=== PATIENT | female | born 1965 | race Two or more races ===

== ENCOUNTER → 2021-03-22 09:05 | Outpatient (REF) | payer BC, SELFPAY ==
--- NOTE | 2021-03-22 09:08 | CA_ITS ---
Transthoracic Echocardiogram Patient (Last, First, Middle): Tasia Vigil H Gender: Female Date of : 1965 Age: 56 Procedure Date: 03/22/2021 Procedure Type: Transthoracic Echocardiogram Location: OP Height: 162.56 cm Weight: 98.88 kg BSA: 2.03 m2 Heart Rate: bpm BP: 150 / 81 mmHg Cottage Master: NAT Referring MD: Justin Becker [facility] Symptoms: R01.1 - Cardiac murmur, unspecified Study Quality: Fair ECG Rhythm: Sinus Conclusions: - The left ventricular systolic function is normal. The visually estimated ejection fraction is between 60-65%. - There is mild calcification of the aortic valve. - There is mild mitral annular calcification. Findings Left Ventricle Normal left ventricular cavity size. There is normal left ventricular wall thickness. The left ventricular systolic function is normal. The visually estimated ejection fraction is between 60-65%. The calculated ejection fraction is 64% by biplane method. There is no evidence of regional wall motion abnormalities. Diastolic function is indeterminate on the basis of available data. Right Ventricle Normal right ventricular cavity size and systolic function. Atria Both atria are normal in size. Aortic Valve There is mild calcification of the aortic valve. There is no aortic valve stenosis. There is no aortic valve regurgitation. Mitral Valve There is mild mitral annular calcification. There is trace mitral valve regurgitation. There is no mitral valve stenosis. Pulmonic Valve The pulmonic valve was not well visualized. Tricuspid Valve Likely normal tricuspid valve structure and function. There is trace tricuspid valve regurgitation. The pulmonary artery systolic pressure is normal. Great Vessels The aortic annulus, sinuses of valsalva, and asc aorta are normal in size. Venous The inferior vena cava is normal in size and collapses greater than 50% with inspiration. Pericardium/Pleural There is no evidence of pericardial effusion. Prior Study Comparison No prior study available for comparison. Measurements M-Mode Liner Measurements Normals - Women/Men AOV Cusps: 1.90 1.5-2.6 cm/m2 2D Linear Measurements IVSd: 0.80 0.6-0.9/0.6-1.0 cm LVIDd: 4.62 3.9-5.3/4.2-5.9 cm LVIDd Index: 2.28 2.4-3.2/2.2-3.1 cm/m2 LVIDs: 2.38 2.0-3.6 cm LVPWd: 0.91 0.7-1.1 cm Ao Root: 2.80 2.1-3.5 cm LA Diam: 3.80 2.7-3.8/3.0-4.0 cm LAIDs Index: 1.87 1.5-2.3 cm/m2 LV Mass: 161.98 67-162/88-224 g LV Mass Index: 79.79 43-95/49-115 g/m2 LVOT Diam: 2.40 3.0+(-)1.3 cm 2D Systolic Function EF 4C: 59.50 >55% EF 2C: 66.90 >55% EF BiP: 63.60 >55% Mitral Valve MV Pk E: 1.77 MV PK A: 1.39 MV Decel Time: 128.00 E/A: 1.30 E'Lateral: 10.10 E'Medial: 6.85 E/E' Med: 25.80 E/E' Lat: 17.50 PHT: 38.00 MVA PHT: 5.79 Decel [place]: 13.82 Aortic Valve AoV Pk Henry: 1.46 AoV Mn Henry: 1.02 AoV VTI: 0.30 AoV Pk Grad: 9.00 Aov Mn Grad: 5.00 DONNA Cont.VTI: 3.71 LVOT LVOT Pk Henry: 0.96 LVOT Mn Henry: 0.72 LVOT VTI: 0.25 LVOT Pk Grad: 4.00 LVOT Mn Grad: 2.00 LVOT Diam: 2.40 LVOT Area: 4.52 Diastolic Function MV Pk E: 1.77 MV Pk A: 1.39 E/A: 1.30 E'Medial: 6.85 E/E' Med: 25.80 E' Laterial: 10.10 E/E' Lat: 17.50 Tricuspid Valve TR Pk Henry: 2.73 TR Pk Grad: 30.00 RA Press: 3.00 RVSP: 33.00 Great Vessels Aorta Ao Root-2D: 2.80 2.0-3.7 cm Ao Asc: 3.40 2.1-3.4 cm Ao Arch: 2.90 Pulmonary Valve PV Pk Henry: 1.13 Peak PV Grad: 5.00 Updated in Other Vendor System with Status of Final Amador Grossman MD electronically signed on 03/23/2021 3:15:53 PM with status of Final
== END ==
LOC: HO.CARD 09:05
PROVIDERS: Visit Provider Nurse Practitioner Family
DX: R01.1 Cardiac murmur, unspecified (principal)
CPT/HCPCS: 93306

== ENCOUNTER 2021-05-22 11:05 | Outpatient (REF) | payer BC, SELFPAY ==
--- NOTE | ~2021-05-22 | MM_ITS ---
EXAMINATION: MM SCREENING DIGITAL BREAST TOMOSYNTHESIS, BILATERAL CLINICAL INFORMATION: Screening. Asymptomatic. The lifetime risk of breast cancer based on the Tyrer-Cuzick Model is 7%. COMPARISON: Mammography: 05/16/2020, 04/27/2019, 11/25/2017 TECHNIQUE: Digital breast tomosynthesis is performed in both the craniocaudal and mediolateral oblique views along with computer-aided detection (CAD). Synthesized 2D images are generated from the tomosynthesis. Additional left MLO view is provided. FINDINGS: There are scattered areas of fibroglandular density (ACR BI-RADS breast composition Category b). There are no significant masses, abnormal calcifications, or other abnormalities. The axilla and skin contours are unremarkable. No significant changes. MM/MM tomosynthesis screening BI IMPRESSION: No mammographic evidence of malignancy. ASSESSMENT: BI-RADS 1: Negative RECOMMENDATION: Routine annual mammography screening. This patient's information was entered into a reminder system with a target due date for their next mammogram.
== END 2021-05-22 11:06 | disposition home or self-care (01) ==
LOC: HO.MAMMO 11:05
PROVIDERS: Visit Provider Nurse Practitioner Family
DX: Z12.31 Encounter for screening mammogram for malignant neoplasm of breast (principal)
CPT/HCPCS: 77063; 77067

== ENCOUNTER 2021-10-09 06:54 | Outpatient (REF) | payer BC, SELFPAY ==
[2021-10-09 11:33] LABS: Basophils Percent Auto 0.8 % (0-2); Eosinophils Absolute Auto 0.3 X10*3/uL (0.0-0.4); Eosinophils Percent Auto 6.3 % (0-4); Hemoglobin 12.5 g/dl (12.0-16.0); Imm Gran Abs Auto 0.01 X10*3/uL (0.00-0.03); Imm Gran Pct Auto 0.2 % (0.0-0.4); Lymphocytes Absolute Auto 1.5 X10*3/uL (1.2-4.9); Lymphocytes Percent Auto 32.3 % (20-40); MANUAL DIFF FLAG NO; Mean Corpuscular HGB Conc 30.5 g/dl (31.0-35.0); Mean Corpuscular Hemoglobin 25.8 pg (27.0-33.0); Mean Corpuscular Volume 84.7 fL (80.0-98.0); Mean Platelet Volume 10.4 fL (9.4-12.3); Monocytes Absolute Auto 0.5 X10*3/uL (0.1-1.2); Monocytes Percent Auto 9.9 % (2-11); Neutrophils Absolute Auto 2.4 x10*3/uL (2.0-8.3); Neutrophils Percent Auto 50.5 % (45-73); Platelet Count 305 X10*3/uL (160-400); Red Blood Count 4.84 X10*6/uL (4.20-5.50); Red Cell Distribution Width 16.1 % (11.0-16.0); White Blood Count 4.7 X10*3/uL (4.8-10.8)
[2021-10-09 11:44] LABS: INTERNATIONAL NORM RATIO 0.9 (0.9-1.1); Prothrombin Time 9.9 SEC (9.9-13.0)
[2021-10-09 12:11] LABS: Alanine Aminotransferase 30 U/L (0-31); Albumin Level 4.5 g/dL (3.5-5.0); Alkaline Phosphatase 53 U/L (39-117); Anion Gap 15 (12-20); Aspartate Amino Transferase 16 U/L (5-31); Bilirubin Total 0.4 mg/dL (0.0-1.0); Blood Urea Nitrogen 17 mg/dL (9-16); Calcium 10.1 mg/dL (8.4-10.2); Carbon Dioxide 31 mmol/L (22-29); Chloride 96 mmol/L (96-108); Estimated Glomerular Filt Rate > 60; Glucose Fasting 232 mg/dL (60-99); Potassium 3.7 mmol/L (3.3-5.1); Sodium 138 mmol/L (135-145); Total Protein 7.7 g/dL (6.5-8.0)
[2021-10-09 13:08] LABS: Partial Thromboplastin Time 32.1 SEC (24.1-38.0)
== END 2021-10-09 06:55 | disposition home or self-care (01) ==
LOC: HO.HMGCLDS 06:54
PROVIDERS: PCP Nurse Practitioner Family; Visit Provider Nurse Practitioner Family
DX: Z01.818 Encounter for other preprocedural examination (principal)
CPT/HCPCS: 36415; 80053; 85025; 85610; 85730

== ENCOUNTER 2022-01-14 06:09 | Day surgery (SDC) | payer BC, SELFPAY ==
--- NOTE | 2022-01-10 11:31 | MHC.SHP ---
Pre-Procedural Eval Section A Date of Service: 01/10/22 The patient is an INPATIENT: No Changes since office visit: No Cold of Flu in the past 2 weeks, No New Medical Problems, No Changes in Medication and No Patient answered all questions The History & Physical has been completed within 30 days and I have reviewed it.: Yes Section B Chief Complaint: cataract Allergies: Allergies Allergy/AdvReac Type Severity Reaction Status Date / Time No Known Allergies Allergy Verified 01/09/22 15:31 Plan Diagnosis/Plan: Unchanged I have reviewed the history and physical and performed a pertinent physical examination on my patient. No changes have occurred unless specified.
--- NOTE | 2022-01-10 15:03 | P.CONAN_ITS ---
Documented by User: Prudence Lara NP 01/10/22 15:04 HPI - Anesthesia Eval Consult details Narrative: 56yo F for Right Cataract Extraction IOL Insertion PCP cleared No prev cataract on record [facility] Active Problems Active Problems: All Active Problems (Updated 01/09/22 @ 14:45 by Justin Becker [facility]) Pre-op evaluation (Acute) Screening for colon cancer (Acute) Systolic murmur (Acute) Physical exam (Acute) Pre-op evaluation (Acute) Lipid disorder (Acute) Rheumatoid arthritis (Acute) Hypertension, essential (Acute) Diabetes mellitus (Acute) Past Medical History Medical History (Updated 01/09/22 @ 14:45 by Justin Becker [facility]) Diabetes mellitus Hypertension, essential Lipid disorder On beta bill at home Rheumatoid arthritis Family History Family History Father Heart disease Myocardial infarction Mother History of CVA (cerebrovascular accident) Brother No problems noted. Sister No problems noted. Daughter No problems noted. Daughter No problems noted. Surgical History Surgical History History of back surgery Hx of cholecystectomy Social History Social History Housing: House Alcohol intake: current Alcohol intake frequency: holidays/special occasions only Patient Tobacco Use Status: Former Tobacco user Quit Date: 2009 Years Smoked: quit 12 years ago e-Cigarette/Vaping Use: Never Used Second Hand Smoke Exposure: No Use of substances other than those prescribed or required for medical reasons: No Are you DNR?: No Advance Directives: No Advance Directives Information Provided: Yes Advance Directives on File: No Current occupational status: employed Current occupation: [employer] Current occupational exposures/hazards: No Cognitive needs: No Hearing needs: No Vision needs: No Meds Allergies Allergy/AdvReac Type Severity Reaction Status Date / Time No Known Allergies Allergy Verified 01/09/22 15:31 Home Medications Medication Instructions Recorded Confirmed Last Taken Type etanercept 50 mg/mL (1 mL) mg SUBCUT QWEEK 08/04/20 01/09/22 Unknown History subcutaneous pen injector folic acid 1 mg tablet 1 mg PO DAILY 02/28/21 01/09/22 Unknown History methotrexate (PF) 15 mg/0.4 mL 15 mg SUBCUT QWEEK 10/09/21 01/09/22 Unknown History subcutaneous auto-injector Exam Exam Date and Time: January 10, 2022 1503 Assessment and Plan Assessment Anesthesia Assessment: Chart Reviewed Documented by User: Gonzalez Maddox MD 01/14/22 07:03 [facility] Past Medical History Medical History (Updated 01/09/22 @ 14:45 by ELIZABETH Isaac) Diabetes mellitus Hypertension, essential Lipid disorder On beta bill at home Rheumatoid arthritis Family History Family History Father Heart disease Myocardial infarction Mother History of CVA (cerebrovascular accident) Brother No problems noted. Sister No problems noted. Daughter No problems noted. Daughter No problems noted. Family history of problems with anesthesia: No Surgical History Surgical History History of back surgery Hx of cholecystectomy History of Problems with Anesthesia: No Social History Social History Housing: House Alcohol intake: current Alcohol intake frequency: holidays/special occasions only Patient Tobacco Use Status: Former Tobacco user Quit Date: 2009 Years Smoked: quit 12 years ago e-Cigarette/Vaping Use: Never Used Second Hand Smoke Exposure: No Use of substances other than those prescribed or required for medical reasons: No Are you DNR?: No Advance Directives: No Advance Directives Information Provided: Yes Advance Directives on File: No Current occupational status: employed Current occupation: [employer] Current occupational exposures/hazards: No Cognitive needs: No Hearing needs: No Vision needs: No Meds Allergies Allergy/AdvReac Type Severity Reaction Status Date / Time No Known Allergies Allergy Verified 01/09/22 15:31 Home Medications Medication Instructions Recorded Confirmed Last Taken Type etanercept 50 mg/mL (1 mL) mg SUBCUT QWEEK 08/04/20 01/09/22 Unknown History subcutaneous pen injector folic acid 1 mg tablet 1 mg PO DAILY 02/28/21 01/09/22 Unknown History methotrexate (PF) 15 mg/0.4 mL 15 mg SUBCUT QWEEK 10/09/21 01/09/22 Unknown History subcutaneous auto-injector Exam Airway Mallampati Class: II TM Dist: >3cm Neck ROM: Full Loose/Missing/Broken Teeth: No Heart: [id number] Lungs: cta b/l Assessment and Plan Assessment Anesthesia Assessment: Anesthesia Plan Discussed Final Anesthetic Review Family History of Problems with Anesthesia: No History of Problems with Anesthesia: No NPO: Yes ASA Class: III Final Preanesthetic Review: No Changes in Pt Med Stat, Meds/Allgs Chart Reviewed, Consent Obtained/Reviewed and Anes Risks/Benef Reviewed Patient Risk: Intermediate Procedure Risk: Low Assessment/Block/Sedation in SS: Assess/Block/Sedation-SS Anesthetic Plan Anesthetic Plan: MAC: and Agree w/ Assess. and Plan Disposition: Standard PACU
[2022-01-14 06:17] VITALS: BP 150/91; PULSE 93; RESP 16; TEMP 36.2; O2SAT 97; BMI 35.9
[2022-01-14 06:30] LABS: Glucose, Whole Blood 205 mg/dL (60-115)
[2022-01-14] MEDS: Tetracaine HCl/PF 0.5% Oph Sol 4 ML DROPS 1 DROP EYE-RIGHT (06:32)
[2022-01-14] MEDS: Lactated Ringers 500 ML 50 ML IV (06:32)
[2022-01-14] MEDS: Tropicamide 1 % Ophth Sol 3 ML BTL 1 DROP EYE-RIGHT ×3 (06:34→06:42)
[2022-01-14] MEDS: Phenylephrine HCL 2.5% Oph SoL 2 ML BOTTLE 1 DROP EYE-RIGHT ×3 (06:38→06:44)
--- NOTE | 2022-01-14 07:52 | HO.PNOPHT ---
Ophthalmology Procedure Procedure Date of Service: 01/14/22 Ophthalmology Viscoelastic: Nevaeh Maet Dual Pack Pro Ophthalmology Lenses: TECDOMINIC [id number] (20) Procedure Notes: PREOPERATIVE DIAGNOSIS: Decreased visual acuity right eye secondary to cataract POSTOPERATIVE DIAGNOSIS: Same PROCEDURE: Right cataract extraction with intraocular lens insertion SURGEON: Skinny Winters M.D. ANESTHESIA: Topical/MAC ESTIMATED BLOOD LOSS: None COMPLICATIONS: None After obtaining informed consent, the patient was brought to the operating room suite and placed in the supine position. After adequate sedation per anesthesia, topical drops of Tetracaine were given to the right eye. The eye was then prepped and draped in the usual sterile fashion. The operating room microscope was then positioned over the operative eye and a lid speculum placed. A paracentesis was created. Viscoelastic was then instilled into the anterior chamber. A three plane incision was then created temporally, utilizing a 2.85 mm keratome. Capsulotomy forceps were then utilized to create a circular tear capsulotomy. Hydrodissection and hydrodelineation were carried out until adequate mobilization of the nucleus occurred. Phacoemulsification was then utilized to remove the dense central nucleus followed by removal of the cortical material utilizing the automated aspiration irrigation unit. Viscoelastic was instilled into the posterior capsular bag followed by placement of a posterior chamber intraocular lens without difficulty. The residual Viscoelastic was then removed utilizing the automated IA machine. The wound was checked and found to be watertight. The patient tolerated the procedure well and the lid speculum was removed. Intracameral injection of Vigamox 0.1 mL followed by a subtenon injection of Kenalog-40 0.2 mL were administered. The patient will be seen in the a.m.
[2022-01-14 07:58] VITALS: BP 128/76; PULSE 86; RESP 18; TEMP 36.1; O2SAT 94
== END 2022-01-14 08:01 | disposition home or self-care (01) ==
PROVIDERS: PCP Nurse Practitioner Family; Visit Provider Ophthalmology
PROC: (CPT 66985; principal; 2022-01-14 07:30)
DX: H25.11 Age-related nuclear cataract, right eye (principal); E11.9 Type 2 diabetes mellitus without complications; I10 Essential (primary) hypertension; M06.9 Rheumatoid arthritis, unspecified; Z79.84 Long term (current) use of oral hypoglycemic drugs; Z79.899 Other long term (current) drug therapy
CPT/HCPCS: 66984; 82947; J2250; J3010; J3300; V2632

== ENCOUNTER 2022-08-26 14:11 | Outpatient (REF) | payer BC, SELFPAY ==
[2022-08-26 15:04] LABS: Influenza A PCR NEGATIVE (Negative); Influenza B PCR NEGATIVE (Negative); Resp Syncy Virus RNA Qual PCR NEGATIVE (Negative); SARS COV2 PCR INHOUSE NEGATIVE (Negative)
== END 2022-08-26 14:12 | disposition home or self-care (01) ==
LOC: HO.LNP 14:11
PROVIDERS: Visit Provider Nurse Practitioner Family
DX: Z20.822 Contact with and (suspected) exposure to COVID-19 (principal); J02.9 Acute pharyngitis, unspecified
CPT/HCPCS: 0241U

== ENCOUNTER 2022-09-06 06:11 | Outpatient (REF) | payer BC, SELFPAY ==
[2022-09-06 12:55] LABS: Alanine Aminotransferase 26 U/L (0-31); Albumin Level 4.1 g/dL (3.5-5.0); Alkaline Phosphatase 53 U/L (39-117); Anion Gap 17 (12-20); Aspartate Amino Transferase 19 U/L (5-31); Bilirubin Total 0.5 mg/dL (0.0-1.0); Blood Urea Nitrogen 7 mg/dL (9-16); Calcium 9.6 mg/dL (8.4-10.2); Carbon Dioxide 34 mmol/L (22-29); Chloride 89 mmol/L (96-108); Cholesterol 154 mg/dL; Estimated Glomerular Filt Rate > 60; Glucose Fasting 161 mg/dL (60-99); HDL Cholesterol 47 mg/dL; LDL Cholesterol Calculated 62 mg/dl; Potassium 3.2 mmol/L (3.3-5.1); TSH reflex Free T4 1.54 uIU/mL (0.32-4.0); Triglycerides 229 mg/dL
[2022-09-06 12:59] LABS: Sodium 137 mmol/L (135-145)
[2022-09-06 13:16] LABS: Appearance Urine Clear; Color Urine Yellow; Glucose Urine UA >=1000 mg/dL (Negative); Leukocyte Esterase Urine Negative (Negative); Nitrite Urine Negative (Negative); PH 6.5 (5.0-9.0); UMIC TRIGGER UACC YES; Urine Blood Negative (Negative); Urine Ketones 15 mg/dL (Negative); Urine Protein Negative (Neg-Trace)
[2022-09-06 13:22] LABS: Bacteria Urine None Seen (None Seen); Hyaline Casts Urine 0-2 /LPF (0-2); RBC Urine 0-2 /HPF (0-2); Squamous Epithelial Cell Urine 0-2 /HPF (0-2); WBC Urine 0-5 /HPF (0-5)
[2022-09-06 13:37] LABS: Estimated Average Glucose 192 mg/dL; Hemoglobin A1c % 8.3 %
[2022-09-06 14:07] LABS: Creatinine Urine 16.91 mg/dL; Microalbumin Urine < 5.0 mg/L
== END 2022-09-06 06:12 | disposition home or self-care (01) ==
LOC: HO.HMGCLDS 06:11
PROVIDERS: PCP Nurse Practitioner Family; Visit Provider Nurse Practitioner Family
DX: E11.9 Type 2 diabetes mellitus without complications (principal)
CPT/HCPCS: 36415; 80053; 80061; 81001; 82043; 83036; 84443

== ENCOUNTER 2022-09-16 15:48 | Outpatient (REF) | payer BC, SELFPAY ==
--- NOTE | ~2022-09-16 | MM_ITS ---
EXAMINATION: MM SCREENING DIGITAL BREAST TOMOSYNTHESIS, BILATERAL CLINICAL INFORMATION: Screening. Asymptomatic. The lifetime risk of breast cancer based on the Tyrer-Cuzick Model is 5%. COMPARISON: Mammography: 05/22/2021, 05/16/2020, 04/27/2019 TECHNIQUE: Digital breast tomosynthesis is performed in both the craniocaudal and mediolateral oblique views along with computer-aided detection (CAD). Synthesized 2D images are generated from the tomosynthesis. Additional right MLO view is provided. FINDINGS: There are scattered areas of fibroglandular density (ACR BI-RADS breast composition Category b). There are no significant masses, abnormal calcifications, or other abnormalities. Parenchymal pattern is similar to prior studies. No developing density or architectural abnormality. There is a dermal lesion marked with skin marker right axilla. Axillary nodes are unremarkable. Skin contours are otherwise smooth. MM/MM tomosynthesis screening BI IMPRESSION: No mammographic evidence of malignancy. ASSESSMENT: BI-RADS 2: Benign RECOMMENDATION: Routine annual mammography screening. This patient's information was entered into a reminder system with a target due date for their next mammogram.
== END 2022-09-16 15:49 | disposition home or self-care (01) ==
LOC: HO.MAMMO 15:48
PROVIDERS: Visit Provider Nurse Practitioner Family
DX: Z12.31 Encounter for screening mammogram for malignant neoplasm of breast (principal)
CPT/HCPCS: 77063; 77067

== ENCOUNTER 2022-10-22 11:39 | Outpatient (REF) | payer BC, SELFPAY ==
[2022-10-22 14:08] LABS: Appearance Urine Clear; Color Urine Yellow; Glucose Urine UA >=1000 mg/dL (Negative); Leukocyte Esterase Urine Negative (Negative); Nitrite Urine Negative (Negative); UMIC TRIGGER UACC YES; Urine Blood Negative (Negative); Urine Ketones Negative (Negative); Urine Protein Negative (Neg-Trace)
[2022-10-22 14:16] LABS: Bacteria Urine None Seen (None Seen); Hyaline Casts Urine 0-2 /LPF (0-2); RBC Urine 0-2 /HPF (0-2); Squamous Epithelial Cell Urine 0-2 /HPF (0-2); WBC Urine 0-5 /HPF (0-5)
[2022-10-22 15:15] LABS: Anion Gap 19 (12-20); Carbon Dioxide 27 mmol/L (22-29); Chloride 91 mmol/L (96-108); Potassium 3.8 mmol/L (3.3-5.1); Sodium 133 mmol/L (135-145)
== END 2022-10-22 11:40 | disposition home or self-care (01) ==
LOC: HO.HMGCLDS 11:39
PROVIDERS: PCP Nurse Practitioner Family; Visit Provider Nurse Practitioner Family
DX: E87.6 Hypokalemia (principal)
CPT/HCPCS: 36415; 80051; 81001; 81003

== ENCOUNTER 2023-04-30 09:08 | Outpatient (REF) | payer BC, SELFPAY ==
[2023-04-30 11:10] LABS: MANUAL DIFF FLAG NO
[2023-04-30 11:16] LABS: Appearance Urine Cloudy; Color Urine Yellow; Glucose Urine UA >=1000 mg/dL (Negative); Leukocyte Esterase Urine Small (1+) (Negative); Nitrite Urine Negative (Negative); PH 5.5 (5.0-9.0); Specific Gravity - Urine 1.025 (1.005-1.025); UMIC TRIGGER UACC YES; Urine Blood Negative (Negative); Urine Ketones Negative (Negative); Urine Protein 30 (1+) mg/dL (Neg-Trace)
[2023-04-30 11:29] LABS: Bacteria Urine Trace (None Seen); RBC Urine 0-2 /HPF (0-2); Squamous Epithelial Cell Urine >20 /HPF (0-2); UACC Culture Trigger YES; WBC Urine 21-50 /HPF (0-5)
[2023-04-30 11:34] LABS: Basophils Percent Auto 1.1 % (0-2); Eosinophils Absolute Auto 0.3 X10*3/uL (0.0-0.4); Eosinophils Percent Auto 7.1 % (0-4); Hematocrit 37.7 % (37.0-47.0); Hemoglobin 11.1 g/dl (12.0-16.0); Lymphocytes Absolute Auto 1.4 X10*3/uL (1.2-4.9); Lymphocytes Percent Auto 40.5 % (20-40); Mean Corpuscular HGB Conc 29.4 g/dl (31.0-35.0); Mean Corpuscular Hemoglobin 23.3 pg (27.0-33.0); Mean Platelet Volume 10.5 fL (9.4-12.3); Monocytes Absolute Auto 0.4 X10*3/uL (0.1-1.2); Monocytes Percent Auto 10.5 % (2-11); Neutrophils Absolute Auto 1.4 x10*3/uL (2.0-8.3); Neutrophils Percent Auto 40.8 % (45-73); Platelet Count 339 X10*3/uL (160-400); Red Blood Count 4.77 X10*6/uL (4.20-5.50); Red Cell Distribution Width 16.7 % (11.0-16.0); White Blood Count 3.5 X10*3/uL (4.8-10.8)
[2023-04-30 11:42] LABS: Estimated Average Glucose 154 mg/dL
[2023-04-30 12:18] LABS: Alanine Aminotransferase 32 U/L (0-31); Albumin Level 4.2 g/dL (3.5-5.0); Alkaline Phosphatase 53 U/L (39-117); Anion Gap 14 (12-20); Aspartate Amino Transferase 21 U/L (5-31); Bilirubin Total 0.5 mg/dL (0.0-1.0); Blood Urea Nitrogen 13 mg/dL (9-16); Calcium 9.5 mg/dL (8.4-10.2); Carbon Dioxide 30 mmol/L (22-29); Chloride 97 mmol/L (96-108); Cholesterol 159 mg/dL; Estimated Glomerular Filt Rate > 60; Glucose Fasting 136 mg/dL (60-99); HDL Cholesterol 56 mg/dL; LDL Cholesterol Calculated 68 mg/dl; Potassium 3.1 mmol/L (3.3-5.1); Sodium 138 mmol/L (135-145); Total Protein 7.4 g/dL (6.5-8.0); Triglycerides 176 mg/dL
== END 2023-04-30 09:09 | disposition home or self-care (01) ==
LOC: HO.HMGCLDS 09:08
PROVIDERS: PCP Nurse Practitioner Family; Visit Provider Nurse Practitioner Family
DX: Z00.00 Encounter for general adult medical examination without abnormal findings (principal); E11.9 Type 2 diabetes mellitus without complications; R82.90 Unspecified abnormal findings in urine
CPT/HCPCS: 36415; 80053; 80061; 81001; 83036; 84443; 85025; 87086

== ENCOUNTER 2023-05-08 12:10 | Outpatient (REF) | payer BC, SELFPAY ==
[2023-05-08 13:46] LABS: Basophils Percent Auto 0.5 % (0-2); Eosinophils Absolute Auto 0.2 X10*3/uL (0.0-0.4); Eosinophils Percent Auto 4.4 % (0-4); Hematocrit 35.8 % (37.0-47.0); Hemoglobin 10.8 g/dl (12.0-16.0); Lymphocytes Absolute Auto 1.7 X10*3/uL (1.2-4.9); Lymphocytes Percent Auto 31.7 % (20-40); MANUAL DIFF FLAG NO; Mean Corpuscular HGB Conc 30.2 g/dl (31.0-35.0); Mean Corpuscular Hemoglobin 23.6 pg (27.0-33.0); Mean Corpuscular Volume 78.3 fL (80.0-98.0); Mean Platelet Volume 10.6 fL (9.4-12.3); Monocytes Absolute Auto 0.5 X10*3/uL (0.1-1.2); Monocytes Percent Auto 8.4 % (2-11); Platelet Count 298 X10*3/uL (160-400); Red Blood Count 4.57 X10*6/uL (4.20-5.50); Red Cell Distribution Width 16.6 % (11.0-16.0); Retic HGB Equivalent 25.5 pg (30.0-35.0); Reticulocyte Percent 1.9 % (0.5-1.8); Reticulocytes Absolute 0.085 X10*6/uL (0.026-0.095); White Blood Count 5.5 X10*3/uL (4.8-10.8)
[2023-05-08 14:47] LABS: Alanine Aminotransferase 30 U/L (0-31); Albumin Level 4.2 g/dL (3.5-5.0); Alkaline Phosphatase 50 U/L (39-117); Anion Gap 18 (12-20); Aspartate Amino Transferase 21 U/L (5-31); Bilirubin Total 0.4 mg/dL (0.0-1.0); Blood Urea Nitrogen 13 mg/dL (9-16); Calcium 9.7 mg/dL (8.4-10.2); Carbon Dioxide 26 mmol/L (22-29); Chloride 97 mmol/L (96-108); Estimated Glomerular Filt Rate > 60; Glucose Random 127 mg/dL (60-115); Iron 28 mcg/dL (30-160); Percent Iron Saturation 7 % (15-50); Potassium 3.4 mmol/L (3.3-5.1); Sodium 138 mmol/L (135-145); Total Iron Binding Capacity 409 mcg/dL (228-428); Total Protein 7.5 g/dL (6.5-8.0); Unsaturated Iron Binding 381 ug/dL
[2023-05-08 15:03] LABS: Ferritin 14 ng/mL (10-250)
[2023-05-08 16:54] LABS: Appearance Urine Clear; Color Urine Yellow; Glucose Urine UA >=1000 mg/dL (Negative); Leukocyte Esterase Urine Negative (Negative); Nitrite Urine Negative (Negative); PH 5.5 (5.0-9.0); UMIC TRIGGER UACC YES; Urine Blood Negative (Negative); Urine Ketones Trace mg/dL (Negative); Urine Protein Negative (Neg-Trace)
[2023-05-08 16:57] LABS: Bacteria Urine None Seen (None Seen); Hyaline Casts Urine 0-2 /LPF (0-2); RBC Urine 0-2 /HPF (0-2); Squamous Epithelial Cell Urine 0-2 /HPF (0-2); WBC Urine 0-5 /HPF (0-5)
== END 2023-05-08 12:11 | disposition home or self-care (01) ==
LOC: HO.HMGCLDS 12:10
PROVIDERS: PCP Nurse Practitioner Family; Visit Provider Nurse Practitioner Family
DX: D64.9 Anemia, unspecified (principal); E87.6 Hypokalemia
CPT/HCPCS: 36415; 80053; 81001; 82728; 83540; 85025; 85045

== ENCOUNTER 2023-05-09 | Outpatient (REF) | payer BC, SELFPAY ==
[2023-05-14 04:19] LABS: FIT1 NEGATIVE (NEGATIVE); FIT2 POSITIVE (NEGATIVE)
[2023-05-14 04:20] LABS: FIT Int Ctl YES
== END 2023-05-09 00:01 | disposition home or self-care (01) ==
LOC: HO.LNP
PROVIDERS: Visit Provider Nurse Practitioner Family
DX: D64.9 Anemia, unspecified (principal)
CPT/HCPCS: 82274

== ENCOUNTER 2023-05-13 14:19 | Outpatient (AMB) | payer BC, SELFPAY ==
[2023-05-13 14:29] VITALS: BP 138/76; PULSE 96; O2SAT 97; BMI 35.9
--- NOTE | 2023-05-13 14:29 | MHC.PC.OV ---
Vital Signs 05/13/23 14:29 Height 5 ft 4 in Weight 209 lb 2 oz BMI 35.9 BP 138/76 Blood Pressure Location Rt brachial Position Sitting Pulse 96 Pulse Source Pulse Oximeter Pulse Oximetry (%) 97 Oxygen Delivery Method Room Air Intake Visit Reasons: 3m follow up DM Allergies No Known Allergies Allergy (Verified 05/13/23 14:45) Medication List - Last Reconciled 05/13/23 by ELIZABETH Isaac albuterol sulfate 90 mcg/actuation 1 inh inhalation QID PRN diltiazem HCl 360 mg PO DAILY dulaglutide (Trulicity) 3 mg (0.5 mL) subcut QWEEK empagliflozin (Jardiance) 25 mg PO DAILY 90 days etanercept mg subcut QWEEK folic acid 1 mg PO DAILY hydrochlorothiazide 25 mg PO DAILY lisinopril 40 mg PO DAILY metformin 1,000 mg PO BID methotrexate (PF) 15 mg subcut QWEEK metoprolol succinate ER 100 mg PO DAILY OneTouch Ultra Test (blood sugar diagnostic) test blood sugar TID NS potassium chloride ER 10 mEq PO DAILY 30 days simvastatin 80 mg PO BEDTIME Tobacco use date assessed: 05/13/23 Dental Screening Dental Screen Date: 05/13/23 Did you have a dental visit in the last 12 months?: Yes Did you have a dental problem in the last 6 months where you did not have access to dental care?: No Was dental information given to patient?: Patient has dentist HPI 3m follow up DM HPI Details Pt is a diabetic, on an AURA and a statin. Last A1c was 7.0, microalbumin is up to date. Denies polyuria, polydipsia, and neuropathy. Pt denies any signs and symptoms of hypoglycemia and does know how to correct it. Anemia noted, recommended starting iron tabs. Denies any blood in stool. [facility] Medical History Diabetes mellitus Hypertension, essential Lipid disorder On beta bill at home Rheumatoid arthritis Surgical History History of back surgery Hx of cholecystectomy Family History Father Heart disease Myocardial infarction Mother History of CVA (cerebrovascular accident) Brother No problems noted. Sister No problems noted. Daughter No problems noted. Daughter No problems noted. Social History Housing: House Alcohol intake: current Alcohol intake frequency: holidays/special occasions only Patient Tobacco Use Status: Former Tobacco user Quit Date: 2010 Years Smoked: quit 12 years ago e-Cigarette/Vaping Use: Never Used Second Hand Smoke Exposure: No Current occupational status: employed Current occupation: [employer] Current occupational exposures/hazards: No Cognitive needs: No Hearing needs: No Vision needs: No Questionnaire Thrive Questionnaire Date Thrive assessed: 01/02/23 MIKE-7 AMB Questionnaire MIKE-7 Date MIKE - 7 assessed: 01/02/23 Source: Developed by Drs. Cecil Montez, Rubi Kenyon, Sha Sultana and colleagues, with an educational gladys from [employer]. Review of Systems Const Reports as per HPI Physical exam (Primary Care) Vital Signs: Last Vital Signs Pulse 96 05/13/23 14:29 BP 138/76 05/13/23 14:29 Pulse Ox 97 05/13/23 14:29 Oxygen Delivery Method Room Air 05/13/23 14:29 BMI result Body Mass Index 35.9 Tobacco/Smoking Status: Tobacco use Status Tobacco use date assessed 05/13/23 05/13/23 14:33 Patient Tobacco Use Status Former Tobacco user 05/13/23 14:33 e-Cigarette/Vaping Use Never Used 05/13/23 14:33 Thrive Assessment: Date of Thrive Assessment Date Thrive assessed 01/02/23 05/13/23 14:33 Const General: cooperative Nutritional Appearance: obese Orientation/consciousness: patient oriented x3 Resp Effort & Inspection: normal respiratory effort Auscultation: clear to auscultation bilaterally Cardio Rate: regular rate Rhythm: regular rhythm Heart sounds: S1 normal heart sound present, S2 normal heart sound present and Murmur heart sound present systolic Neuro General: patient oriented x3 Extrem Other: bilat feet: + sensation with use of monofilament, feet intact Psych Appearance: grossly normal Mental Status: mental status grossly normal Speech and movement: Normal speech and movement present Affect: normal affect Attitude: cooperative Thought process: Normal thought process present Thought content: Normal thought content present Insight: Good insight present (Psych) Judgement: Good judgement present (Psych) Assessment and Plan Assessment & Plan (1) Anemia: Code(s): D64.9 - Anemia, unspecified (2) Diabetes mellitus: Code(s): E11.9 - Type 2 diabetes mellitus without complications Plan The patient agreed to the use of a ophthalmic medical technician for this encounter. Scribed for ELIZABETH Gordillo by Mellisa Collins ophthalmic medical technician, on 05/13/2023 at 14:40 EST. Orders: Orders Ferritin Today D64.9 - Anemia, unspecified IRON PROFILE 3 Months D64.9 - Anemia, unspecified Complete Blood Count Auto Diff Today D64.9 - Anemia, unspecified Referrals Cologuard Test Z12.11 - Encounter for screening for malignant neoplasm of colon, Z12.12 - Encounter for screening for malignant neoplasm of rectum Medications: New OneTouch UltraSoft 2 Lancet (lancets) TID testing 100 ea 0RF NS E11.9 - Type 2 diabetes mellitus without complications OneTouch Ultra2 Meter (blood-glucose meter) TID testing 1 ea 0RF NS E11.9 - Type 2 diabetes mellitus without complications OneTouch Ultra2 Meter (blood-glucose meter) TID testing 1 ea 0RF NS E11.9 - Type 2 diabetes mellitus without complications Changed From dulaglutide (Trulicity) 3 mg (0.5 mL) subcut QWEEK 6 mL 0RF E11.9 - Type 2 diabetes mellitus without complications To dulaglutide 4.5 mg (0.5 mL) subcut QWEEK 2 mL 0RF E11.9 - Type 2 diabetes mellitus without complications Coding Level of Care Code Est Pt Level 3 (26686) Diagnoses Anemia D64.9 Diabetes mellitus E11.9
== END 2023-05-13 14:53 | disposition home or self-care (01) ==
PROVIDERS: PCP Nurse Practitioner Family; Visit Provider Nurse Practitioner Family
DX: D64.9 Anemia, unspecified (principal); E11.9 Type 2 diabetes mellitus without complications
CPT/HCPCS: 99213

== ENCOUNTER 2023-05-14 09:33 | Outpatient (REF) | payer BC, SELFPAY ==
[2023-05-21 04:14] LABS: HPV mRNA E6/E7 rflx Not Detected (Not Detected)
== END 2023-05-14 09:34 | disposition home or self-care (01) ==
LOC: HO.LNP 09:33
PROVIDERS: PCP Nurse Practitioner Family; Visit Provider Advanced Practice Midwife
DX: Z01.419 Encounter for gynecological examination (general) (routine) without abnormal findings (principal); N95.1 Menopausal and female climacteric states
CPT/HCPCS: 87624; 88142

== ENCOUNTER 2023-05-14 09:33 | Outpatient (AMB) | payer BC, SELFPAY ==
--- NOTE | 2023-05-14 09:33 | A.OFFVIS_ITS ---
Intake Vital Signs 05/14/23 09:34 Height 5 ft 4 in Weight 210 lb BMI 36.0 BP 154/84 H Intake Visit Reasons: New patient Annual Intake Note: The patient agreed to use of a medical office receptionist assistant during this encounter. Scribed for DESIRE Tay by Paulina Machado medical office receptionist assistant, on 05/14/2023 at 9:52 am EST. Soap Slabber: Soap Slabber Present (Stephanie) Allergies No Known Allergies Allergy (Verified 05/14/23 09:34) Post menopausal: Yes HPI HPI Comments History of Present Illness Details She is a postmenopausal woman presenting for annual exam. Patient admits she tries to eat a healthy diet including Calcium and Vitamin D. She stays active with exercise. Currently sexually active. Denies vaginal itching and irritation. Admits vaginal dryness and is using lubrication during intercourse. Denies family hx of breast, colon and ovarian cancer. Last pap smear 07/14/18. Last mammogram 09/16/22. Is doing FIT test and Cologaurd. [facility] Medical History Diabetes mellitus Hypertension, essential Lipid disorder Menopausal vaginal dryness On beta bill at home Rheumatoid arthritis Surgical History History of back surgery Hx of cholecystectomy Family History Father Heart disease Myocardial infarction Mother History of CVA (cerebrovascular accident) Brother No problems noted. Sister No problems noted. Daughter No problems noted. Daughter No problems noted. Social History Housing: House Alcohol intake: current Alcohol intake frequency: holidays/special occasions only Patient Tobacco Use Status: Former Tobacco user Quit Date: 2009 Years Smoked: quit 12 years ago e-Cigarette/Vaping Use: Never Used Second Hand Smoke Exposure: No Current occupational status: employed Current occupation: [employer] Current occupational exposures/hazards: No Sexual orientation: Straight/Heterosexual Gender identity: Female Cognitive needs: No Hearing needs: No Vision needs: No Female Reproductive History Menstrual Menopause type: natural Total pregnancies: 3 Full term: 1 Premature: 1 Number of Living Children: 2 Ab spontaneous: 1 Date of last pap smear: 07/14/18 (neg pap and hpv) Date of Mammogram: 09/16/22 (Birad 2) Physical Exam Vital Signs: Last Vital Signs BP 154/84 H 05/14/23 09:34 BMI result Body Mass Index 36.0 Const General: cooperative, healthy appearing, no acute distress, well developed and alert Orientation/consciousness: patient oriented x3 HEENT Head: Yes normal to inspection Eyes General: appearance normal, both eyes and all related structures Neck Neck: Yes normal visual inspection Thyroid: Thyroid normal Chest Chest palpation & inspection: normal inspection of the chest Breast/axilla inspection: normal inspection of the breasts (no puckering, dimpling, peau de orange, retraction, discharge, masses) Breast/axilla palpation: normal palpation of the breasts Resp Effort & Inspection: normal respiratory effort GI Inspection: Yes normal to inspection Palpation (GI): Soft to palpation (to palpation) Rectal Exam - Female: deferred General: Yes bladder normal to inspection External Female Exam: normal external appearance and normal appearance of the urethra Speculum Exam - Vagina: normal appearance of the vagina, normal palpation and vagina atrophic Speculum Exam - Cervix: normal appearance of the cervix and normal palpation Bimanual exam- vagina & uterus: normal palpation and normal palpation Bimanual Exam- Adnexa, other: normal adnexae and no masses Skin General skin exam: no rashes or lesions noted Neuro General: patient oriented x3 Cognition (Neuro): normal cognition Extrem General: Yes normal to inspection Psych Attitude: cooperative Thought process: Normal thought process present Assessment & Plan Assessment & Plan (1) Encounter for well woman exam: Code(s): Z01.419 - Encounter for gynecological examination (general) (routine) without abnormal findings Plan: Discussed: Current recommendations for pap smears per ASCCP guidelines. Breast awareness and periodic self breast exams. Encouraged yearly mammograms. Maintaining a healthy lifestyle including a well balanced diet including Calcium and Vitamin D and routine exercise. Contact office with any PMB. All of her questions and concerns were addressed to the best of my ability RTO in 1 year for AG. (2) Menopausal vaginal dryness: Code(s): N95.1 - Menopausal and female climacteric states Plan: Recommend Replens, [place] jelly, Astroglide or coconut oil for vaginal dryness. Orders: Orders Pap Smear Today Z01.419 - Encounter for gynecological examination (general) (routine) without abnormal findings Coding Level of Care Code New Pt Prev Care 40-64y(43218) Diagnoses Encounter for well woman exam Z01.419 Menopausal vaginal dryness N95.1
[2023-05-14 09:34] VITALS: BP 154/84; BMI 36.0
== END 2023-05-14 10:07 | disposition home or self-care (01) ==
LOC: HO.HWS 09:33
PROVIDERS: PCP Nurse Practitioner Family; Visit Provider Advanced Practice Midwife
DX: Z01.419 Encounter for gynecological examination (general) (routine) without abnormal findings (principal); N95.1 Menopausal and female climacteric states
CPT/HCPCS: 99386

== ENCOUNTER 2023-07-16 10:57 | Outpatient (AMB) | payer BC, SELFPAY ==
--- NOTE | 2023-07-16 11:06 | A.OFFVIS_ITS ---
Intake Vital Signs 07/16/23 11:07 Height 5 ft 4 in Weight 210 lb BMI 36.0 BP 154/72 H Blood Pressure Location Lt brachial Position Sitting Pulse 86 Intake Visit Reasons: Anemia Other fecal abnormalities Intake Note: Patient new consult for Anemia and fecal abnormalities. Patient cc: acid reflex on and off, IBS symptoms on and off, denies any other GI issues. 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 Accompanied by: Self / Same As Patient Allergies No Known Allergies Allergy (Verified 07/16/23 11:05) Medication List - Last Reconciled 07/16/23 by Jaelyn Mazariegos PA-C albuterol sulfate 90 mcg/actuation 1 inh inhalation QID PRN diltiazem HCl 360 mg PO DAILY dulaglutide 4.5 mg (0.5 mL) subcut QWEEK empagliflozin (Jardiance) 25 mg PO DAILY 90 days etanercept mg subcut QWEEK ferrous sulfate 325 mg PO DAILY folic acid 1 mg PO DAILY hydrochlorothiazide 25 mg PO DAILY lisinopril 40 mg PO DAILY metformin 1,000 mg PO BID methotrexate (PF) 15 mg subcut QWEEK metoprolol succinate ER 100 mg PO DAILY OneTouch Ultra Test (blood sugar diagnostic) test blood sugar TID NS OneTouch Ultra2 Meter (blood-glucose meter) TID testing NS OneTouch UltraSoft 2 Lancet (lancets) TID testing NS potassium chloride ER 10 mEq PO DAILY 30 days simvastatin 80 mg PO BEDTIME HPI HPI Comments History of Present Illness Details A 58 y/o F referred with anemia-she says she has struggled with anemia for years- no menses > 5 years- FIT / Cologuard - negative Appetite is good Bowels- loose sometimes-the however no abdominal pain She has no GI or general complaints No nausea, vomiting, hematemesis, hematochezia fever or chills PFSH Medical History Menopausal vaginal dryness On beta bill at home Lipid disorder Rheumatoid arthritis Hypertension, essential Diabetes mellitus Surgical History History of back surgery Hx of cholecystectomy Family History Father Heart disease Myocardial infarction Mother History of CVA (cerebrovascular accident) Brother No problems noted. Sister No problems noted. Daughter No problems noted. Daughter No problems noted. Social History Housing: House Alcohol intake: current Alcohol intake frequency: holidays/special occasions only Patient Tobacco Use Status: Former Tobacco user Quit Date: 2009 Years Smoked: quit 12 years ago e-Cigarette/Vaping Use: Never Used Second Hand Smoke Exposure: No Current occupational status: employed Current occupation: [employer] Current occupational exposures/hazards: No Sexual orientation: Straight/Heterosexual Gender identity: Female Cognitive needs: No Hearing needs: No Vision needs: No Review of Systems Const All systems reviewed & are unremarkable except as noted in HPI and below Card Denies chest pain and Denies dyspnea Resp Denies dyspnea Physical Exam Vital Signs: Last Vital Signs Pulse 86 07/16/23 11:07 BP 154/72 H 07/16/23 11:07 BMI result Body Mass Index 36.0 Const General: cooperative, healthy appearing, comfortable and no acute distress Orientation/consciousness: patient oriented x3 Limitations: no limitations Eyes Sclerae: sclerae normal Resp Effort & Inspection: normal respiratory effort and able to speak in complete sentences Auscultation: clear to auscultation bilaterally, no rales, no rhonchi and no wheezes Cardio Rate: regular rate Rhythm: regular rhythm Heart sounds: S1 normal heart sound present and S2 normal heart sound present Neuro General: patient oriented x3 Extrem General: Yes full ROM Psych Mental Status: mental status grossly normal Speech and movement: Normal speech and movement present Affect: normal affect Thought process: Normal thought process present Thought content: Normal thought content present Assessment & Plan Assessment & Plan (1) Occult blood in stools: Code(s): R19.5 - Other fecal abnormalities (2) Anemia: Comment: 58-year-old female persistent anemia, positive fit test Never had a screening colonoscopy EGD colonoscopy Discussed procedure, rare risks need for escort Code(s): D64.9 - Anemia, unspecified Plan: Update Plan EGD colonoscopy MiraLax Gatorade split prep-literature given Update labs Orders: Orders Complete Blood Count Auto Diff 07/16/23 D64.9 - Anemia, unspecified Vitamin B12 and Folate 07/16/23 D64.9 - Anemia, unspecified Transglutaminase IgA 07/16/23 R19.7 - Diarrhea, unspecified EGD/Soquel Combo - GI Use Only 07/16/23 D64.9 - Anemia, unspecified Endomysial IgA rflx Titer 07/16/23 D64.9 - Anemia, unspecified IRON PROFILE 07/16/23 D64.9 - Anemia, unspecified Medications: New bisacodyl (Dulcolax (bisacodyl)) Day before procedure, prep day Take 4 tablets by mouth upon awakening followed by large glass of water 20 mg (4 x 5 mg) PO ONCE 1 day 4 tabs 0RF colonoscopy prep Z12.11 - Encounter for screening for malignant neoplasm of colon polyethylene glycol 3350 (Miralax) Take as directed by mouth the day before your procedure. 238 grams PO ONCE 1 day PRN 238 grams 0RF laxative effect Patient Instructions: EGD colonoscopy MiraLax Gatorade split prep Literature given Coding Level of Care Code New Pt Level 3 (33751) Diagnoses Occult blood in stools R19.5 Anemia D64.9 Time Spent (min) 30
[2023-07-16 11:07] VITALS: BP 154/72; PULSE 86; BMI 36.0
== END 2023-07-16 12:29 | disposition home or self-care (01) ==
PROVIDERS: PCP Nurse Practitioner Family; Visit Provider Physician Assistant
DX: R19.5 Other fecal abnormalities (principal); D64.9 Anemia, unspecified
CPT/HCPCS: 99203

== ENCOUNTER → 2023-07-16 10:57 | Outpatient (BNVA) | payer BC, SELFPAY | PROVIDERS: PCP Nurse Practitioner Family; Visit Provider Physician Assistant ==

== ENCOUNTER 2023-08-19 13:10 | Outpatient (AMB) | payer BC, SELFPAY ==
--- NOTE | 2023-08-19 14:13 | MHC.OFFWIV ---
Intake Vital Signs 08/19/23 14:14 Height 5 ft 4 in Weight 210 lb 4 oz BMI 36.1 BP 148/68 H Blood Pressure Location Rt brachial Position Sitting Pulse 101 H Pulse Source Pulse Oximeter Pulse Oximetry (%) 95 Oxygen Delivery Method Room Air Intake Visit Reasons: EST/rash/hives on torso [id number] Patient Tobacco Use Status: Former Tobacco user Quit Date: 2009 Allergies No Known Allergies Allergy (Verified 08/24/23 17:47) Medication List - Last Reconciled 08/24/23 by Waqas Bland MD albuterol sulfate 90 mcg/actuation 1 inh inhalation QID PRN bisacodyl (Dulcolax (bisacodyl)) 20 mg (4 x 5 mg) PO ONCE 1 day diltiazem HCl 360 mg PO DAILY dulaglutide 4.5 mg (0.5 mL) subcut QWEEK empagliflozin (Jardiance) 25 mg PO DAILY 90 days etanercept mg subcut QWEEK ferrous sulfate 325 mg PO DAILY folic acid 1 mg PO DAILY hydrochlorothiazide 25 mg PO DAILY lisinopril 40 mg PO DAILY metformin 1,000 mg PO BID methotrexate (PF) 15 mg subcut QWEEK metoprolol succinate ER 100 mg PO DAILY OneTouch Ultra Test (blood sugar diagnostic) test blood sugar TID NS OneTouch Ultra2 Meter (blood-glucose meter) TID testing NS OneTouch UltraSoft 2 Lancet (lancets) TID testing NS polyethylene glycol 3350 (Miralax) 238 grams PO ONCE PRN 1 day potassium chloride ER 10 mEq PO DAILY 30 days prednisone 60 mg (3 x 20 mg) PO DAILY simvastatin 80 mg PO BEDTIME Do you need a note to return to daycare/school/sports/work: Yes HPI EST/rash/hives on torso [id number] HPI Details 58-year-old female presents to the office for a sick visit. Patient is reporting symptoms of her rash over her torso. Predominant itchy symptoms. FORMERLY [facility] Medical History Menopausal vaginal dryness On beta bill at home Lipid disorder Rheumatoid arthritis Hypertension, essential Diabetes mellitus Surgical History History of back surgery Hx of cholecystectomy Family History Father Heart disease Myocardial infarction Mother History of CVA (cerebrovascular accident) Brother No problems noted. Sister No problems noted. Daughter No problems noted. Daughter No problems noted. Social History Housing: House Alcohol intake: current Alcohol intake frequency: holidays/special occasions only Patient Tobacco Use Status: Former Tobacco user Quit Date: 2009 Smoked: quit 12 years ago e-Cigarette/Vaping Use: Never Used Second Hand Smoke Exposure: No Current occupational status: employed Current occupation: [employer] Current occupational exposures/hazards: No Sexual orientation: Straight/Heterosexual Gender identity: Female Cognitive needs: No Hearing needs: No Vision needs: No Physical Exam Vital Signs: Last Vital Signs Pulse 101 H 08/19/23 14:14 BP 148/68 H 08/19/23 14:14 Pulse Ox 95 08/19/23 14:14 Oxygen Delivery Method Room Air 08/19/23 14:14 BMI result Body Mass Index 36.1 Skin Other: Erythematous rash on the torso. Maculopapular rash. No vesicles or pustules seen. Assessment & Plan Assessment & Plan (1) Rash: Code(s): R21 - Rash and other nonspecific skin eruption Plan: Most likely symptoms represent irritant dermatitis. Prednisone provided. If symptoms do not improve to follow-up here. Medications: New prednisone 60 mg (3 x 20 mg) PO DAILY 9 tabs 0RF Coding Level of Care Code Est Pt Level 3 (67779) Diagnoses Rash R21
[2023-08-19 14:14] VITALS: BP 148/68; PULSE 101; O2SAT 95; BMI 36.1
== END 2023-08-19 15:15 | disposition home or self-care (01) ==
PROVIDERS: PCP Nurse Practitioner Family; Visit Provider Internal Medicine
DX: R21 Rash and other nonspecific skin eruption (principal)
CPT/HCPCS: 99213

== ENCOUNTER 2023-11-04 06:09 | Outpatient (REF) | payer BC, SELFPAY ==
[2023-11-04 10:21] LABS: MANUAL DIFF FLAG NO
[2023-11-04 10:36] LABS: Basophils Percent Auto 0.9 % (0-2); Eosinophils Absolute Auto 0.3 X10*3/uL (0.0-0.4); Eosinophils Percent Auto 5.6 % (0-4); Hematocrit 43.5 % (37.0-47.0); Hemoglobin 14.3 g/dl (12.0-16.0); Lymphocytes Absolute Auto 1.5 X10*3/uL (1.2-4.9); Mean Corpuscular HGB Conc 32.9 g/dl (31.0-35.0); Mean Corpuscular Hemoglobin 29.5 pg (27.0-33.0); Mean Corpuscular Volume 89.9 fL (80.0-98.0); Mean Platelet Volume 10.4 fL (9.4-12.3); Monocytes Absolute Auto 0.5 X10*3/uL (0.1-1.2); Monocytes Percent Auto 10.7 % (2-11); Neutrophils Absolute Auto 2.2 x10*3/uL (2.0-8.3); Neutrophils Percent Auto 49.8 % (45-73); Platelet Count 238 X10*3/uL (160-400); Red Blood Count 4.84 X10*6/uL (4.20-5.50); Red Cell Distribution Width 14.5 % (11.0-16.0); White Blood Count 4.5 X10*3/uL (4.8-10.8)
[2023-11-04 10:43] LABS: Alanine Aminotransferase 40 U/L (0-31); Albumin Level 4.4 g/dL (3.5-5.0); Alkaline Phosphatase 47 U/L (39-117); Anion Gap 16 (12-20); Aspartate Amino Transferase 28 U/L (5-31); Bilirubin Total 0.6 mg/dL (0.0-1.0); Blood Urea Nitrogen 21 mg/dL (9-16); Calcium 10.2 mg/dL (8.4-10.2); Carbon Dioxide 28 mmol/L (22-29); Chloride 96 mmol/L (96-108); Cholesterol 171 mg/dL (<200); Estimated Glomerular Filt Rate 47; Glucose Random 190 mg/dL (60-115); HDL Cholesterol 53 mg/dL (>40); Iron 77 mcg/dL (30-160); LDL Cholesterol Calculated 80 mg/dL (<100); Percent Iron Saturation 21 % (15-50); Potassium 3.4 mmol/L (3.3-5.1); Sodium 137 mmol/L (135-145); Total Iron Binding Capacity 372 mcg/dL (228-428); Total Protein 7.5 g/dL (6.5-8.0); Triglycerides 191 mg/dL (<150); Unsaturated Iron Binding 295 ug/dL
[2023-11-04 11:16] LABS: Folate 14.5 ng/mL (> or = 4.0); Vitamin B12 262 pg/mL (200-900)
[2023-11-05 20:49] LABS: Transglutaminase IgA <1.0 U/mL
[2023-11-09 15:17] LABS: Endomysial IgA Antibody Negative (Negative)
== END 2023-11-04 06:10 | disposition home or self-care (01) ==
LOC: HO.HMGCLDS 06:09
PROVIDERS: PCP Nurse Practitioner Family; Referring Provider Physician Assistant; Visit Provider Nurse Practitioner Family
DX: D64.9 Anemia, unspecified (principal); E11.9 Type 2 diabetes mellitus without complications; E87.6 Hypokalemia; R19.7 Diarrhea, unspecified
CPT/HCPCS: 36415; 80053; 80061; 82607; 82746; 83540; 85025; 86231; 86364

== ENCOUNTER 2023-11-12 08:18 | Outpatient (REF) | payer BC, SELFPAY ==
--- NOTE | ~2023-11-12 | US_ITS ---
EXAMINATION: US ABDOMEN COMPLETE CLINICAL INFORMATION: Abnormal levels of other serum enzymes. Elevated liver enzymes. COMPARISON: Increased liver enzymes. TECHNIQUE: Real-time imaging of the abdominal viscera. FINDINGS: PANCREAS: Unremarkable, without mass, focal enlargement, ductal dilatation or peripancreatic fluid. ABDOMINAL AORTA: The proximal, mid, and distal segments are normal in caliber. INFERIOR VENA CAVA: Visualized portions are normal. LIVER: There is hepatomegaly, with a longitudinal span of 20.0 cm. The liver contour is normal. There is diffuse increased liver parenchymal echogenicity. No focal hepatic lesion. There is mild intrahepatic biliary ductal dilatation. GALLBLADDER: Surgically absent. COMMON BILE DUCT: Normal in caliber measuring 1.0 cm in diameter. RIGHT KIDNEY: No hydronephrosis or renal calculi. The kidney measures 13.3 cm in maximum dimension. Multiple simple cysts are seen, the largest at the interpolar aspect measuring 2.6 cm. LEFT KIDNEY: Normal. No hydronephrosis. No renal calculi or focal parenchymal lesions. The kidney measures 12.3 cm in maximum dimension. SPLEEN: Normal. The spleen measures 12.6 cm in maximum dimension. FREE FLUID: None. US/US abdomen complete IMPRESSION: 1. There is hepatomegaly. 2. Mild intrahepatic biliary ductal dilatation is seen. 3. There is generalized increase in hepatic echotexture, consistent with fatty infiltration or hepatocellular disease. Please correlate clinically. No focal hepatic mass is seen. 3. The gallbladder is surgically absent. .
== END 2023-11-12 08:19 | disposition home or self-care (01) ==
LOC: HO.HMGCX 08:18
PROVIDERS: PCP Nurse Practitioner Family; Visit Provider Nurse Practitioner Family
DX: R74.8 Abnormal levels of other serum enzymes (principal)
CPT/HCPCS: 76700

== ENCOUNTER 2024-01-07 07:29 | Outpatient (AMB) | payer BC, SELFPAY ==
--- NOTE | 2024-01-07 07:31 | A.OFFPC_ITS ---
Vital Signs 01/07/24 07:34 Height 5 ft 4 in Weight 212 lb BMI 36.4 BP 120/82 Blood Pressure Location Rt brachial Position Sitting Pulse 78 Pulse Source Pulse Oximeter Pulse Oximetry (%) 98 Oxygen Delivery Method Room Air Intake Visit Reasons: PE Intake Note: Patient here for physical exam. last pap: 05/28 mammo: has appt for next week. Allergies No Known Allergies Allergy (Verified 01/07/24 07:35) Medication List - Last Reconciled 01/07/24 by ROSA Isaac- albuterol sulfate 90 mcg/actuation 1 inh inhalation QID PRN bisacodyl (Dulcolax (bisacodyl)) 20 mg (4 x 5 mg) PO ONCE 1 day diltiazem HCl 360 mg PO DAILY dulaglutide 4.5 mg (0.5 mL) subcut QWEEK empagliflozin (Jardiance) 25 mg PO DAILY 90 days etanercept mg subcut QWEEK ferrous sulfate 325 mg PO DAILY folic acid 1 mg PO DAILY hydrochlorothiazide 25 mg PO DAILY lisinopril 40 mg PO DAILY metformin 1,000 mg PO BID methotrexate (PF) 15 mg subcut QWEEK metoprolol succinate ER 100 mg PO DAILY OneTouch Ultra Test (blood sugar diagnostic) test blood sugar TID NS OneTouch Ultra2 Meter (blood-glucose meter) TID testing NS OneTouch UltraSoft 2 Lancet (lancets) TID testing NS polyethylene glycol 3350 (Miralax) 238 grams PO ONCE PRN 1 day potassium chloride ER 10 mEq PO DAILY 30 days simvastatin 80 mg PO BEDTIME Tobacco use date assessed: 01/07/24 Dental Screening Dental Screen Date: 01/07/24 Did you have a dental visit in the last 12 months?: Yes Did you have a dental problem in the last 6 months where you did not have access to dental care?: No Was dental information given to patient?: Patient has dentist HPI PE HPI Details Pt is here for a PE. Will order labs. Cologuard is up to date. Mammo is scheduled. Has a collator. Pt is a diabetic, on an AURA and a statin. A1C in office today is 7.5. Due for microalbumin, will order. Denies polyuria, polydipsia, and neuropathy. Pt denies any signs and symptoms of hypoglycemia and does know how to correct it. Pt is going to work on her diet and start a walking routine. Hx of anemia, will order labs, followed up with GI. FOR[facility]LY [facility], [facility] Medical History Kidney cysts Menopausal vaginal dryness On beta bill at home Lipid disorder Rheumatoid arthritis Hypertension, essential Diabetes mellitus Surgical History History of back surgery Hx of cholecystectomy Family History Father Heart disease Myocardial infarction Mother History of CVA (cerebrovascular accident) Brother No problems noted. Sister No problems noted. Daughter No problems noted. Daughter No problems noted. Social History Housing: House Alcohol intake: current Alcohol intake frequency: holidays/special occasions only Patient Tobacco Use Status: Former Tobacco user Quit Date: 2009 Smoked: quit 12 years ago e-Cigarette/Vaping Use: Never Used Second Hand Smoke Exposure: No Current occupational status: employed Current occupation: [employer] Current occupational exposures/hazards: No Sexual orientation: Straight/Heterosexual Gender identity: Female Cognitive needs: No Hearing needs: No Vision needs: No Questionnaire PHQ-9 Over the last 2 weeks, how often have you been bothered by any of the following problems? 1. Little interest or pleasure in doing things: not at all 2. Feeling down, depressed, or hopeless: not at all 3. Trouble falling or staying asleep, or sleeping too much: several days 4. Feeling tired or having little energy: several days 5. Poor appetite or overeating: not at all 6. Feeling bad about yourself - or that you are a failure or have let yourself or your family down: not at all 7. Trouble concentrating on things, such as reading the newspaper or watching television: not at all 8. Moving or speaking so slowly that other people could have noticed. Or the opposite - being so fidgety or restless that you have been moving around a lot more than usual: not at all 9. Thoughts that you would be better off or of hurting yourself in some way: not at all Total score: 2 Depression Screening Interpretation: Negative Depression Screening Done: Yes 96916 - PHQ-9 Billing: Yes Source: Developed by Drs. Cecil Montez, Rubi Kenyon, Sha Sultana and colleagues, with an educational gladys from [employer]. Thrive Questionnaire Date Thrive assessed: 01/07/24 What is your living situation today?: I choose not to answer this question Within the past 12 months, did the food you bought not last and you didn't have the money to get more?: I choose not to answer this question Within the past 12 months, did you worry whether your food would run out before you got money to buy more?: I choose not to answer this question Do you have trouble paying for medicines?: I choose not to answer this question Do you have trouble getting transportation to medical appointments?: I choose not to answer this question Do you have trouble paying your heating and electricity bill?: I choose not to answer this question Do you have trouble taking care of your child, family member or friend?: I choose not to answer this question Do you have trouble with day-to-day activities such as bathing, preparing meals, shopping, managing finances, etc.?: I choose not to answer this question Are you currently unemployed and looking for a job?: I choose not to answer this question Are you interested in more education?: I choose not to answer this question Currently or been in a relationship where the following occur: I choose not to answer this question THRIVE Score: 0 AUDIT C Alcohol Use Questionnaire (AUDIT-C) 1. How often do you have a drink containing alcohol?: Monthly or less 2. How many drinks containing alcohol do you have on a typical day when you are drinking?: 1 or 2 3. How often do you have six or more drinks on one occasion?: Never Total Score: 1 Score Reviewed/Action Taken: No MIKE-7 AMB Questionnaire MIKE-7 Date MIKE - 7 assessed: 01/07/24 Feeling nervous, anxious, or on edge: 1 = Several days Not being able to stop or control worryin = Not at all Worrying too much about different things: 0 = Not at all Trouble relaxin = Not at all Being so restless that it is hard to sit still: 0 = Not at all Becoming easily annoyed or irritable: 0 = Not at all Feeling afraid as if something awful might happen: 0 = Not at all Total MIKE-7 score (0-4 normal; 5-9 mild; 10-14 moderate; 15-21 severe): 1 Source: Developed by Drs. Cecil Montez, Rubi Kenyon, Sha Sultana and colleagues, with an educational gladys from [employer]. MIKE-7 Assessment Billing MIKE-7 Assessment Tool: MIKE-7 Assessment 90202 Review of Systems Const Denies chills and Denies fever(s) Eyes Denies blurry vision ENT Denies vertigo, Denies dizziness and Denies sore throat Card Denies chest pain at rest, Denies chest pain with activity, Denies diaphoresis, Denies dyspnea and Denies dyspnea on exertion Resp Denies cough, Denies dyspnea, Denies dyspnea on exertion and Denies wheezing GI Denies abdominal pain, Denies melena, Denies hematochezia, Denies constipation, Denies diarrhea and Denies loose stools Denies hematuria Musc Denies numbness and Denies tingling Skin/Breast Denies lesions Neuro Denies vertigo, Denies dizziness, Denies numbness and Denies tingling Psych Denies anxiety, Denies depression, Denies homicidal ideation, Denies suicidal ideation and Denies other (substance abuse) Aller/Immun Denies wheezing Physical exam (Primary Care) Vital Signs: Last Vital Signs Pulse 78 01/07/24 07:34 BP 120/82 01/07/24 07:34 Pulse Ox 98 01/07/24 07:34 Oxygen Delivery Method Room Air 01/07/24 07:34 BMI result Body Mass Index 36.4 Tobacco/Smoking Status: Tobacco use Status Tobacco use date assessed 01/07/24 01/07/24 07:41 Patient Tobacco Use Status Former Tobacco user 01/07/24 07:32 e-Cigarette/Vaping Use Never Used 01/07/24 07:32 PHQ-9: PHQ-9 Score PHQ-9: Total score 2 01/07/24 08:14 Depression Screening Interpretation: Negative Thrive Assessment: Date of Thrive Assessment Date Thrive assessed 01/07/24 01/07/24 07:46 Currently or been in a relationship where the following occur: I choose not to answer this question Const General: cooperative Nutritional Appearance: obese Orientation/consciousness: patient oriented x3 HENMT Head: Yes normal to inspection, Yes normocephalic and Yes atraumatic Ears: TM's normal bilaterally Eyes General: appearance normal, both eyes and all related structures Alignment and Position: alignment normal and position normal Neck Neck: Yes normal visual inspection and Yes no lymphadenopathy Thyroid: Thyroid normal Resp Effort & Inspection: normal respiratory effort Auscultation: clear to auscultation bilaterally Cardio Rate: regular rate Rhythm: regular rhythm Heart sounds: S1 normal heart sound present, S2 normal heart sound present and Murmur heart sound present systolic (faint) GI Palpation (GI): Soft to palpation and nontender Auscultation: normal bowel sounds Skin Rashes: no rashes Neuro General: patient oriented x3, moves all extremities, no focal motor deficits and deep tendon reflexes 2+ bilaterally Romberg Test: Negative Extrem Other: bilat feet: + sensation with use of monofilament, feet intact Psych Appearance: grossly normal Mental Status: mental status grossly normal Speech and movement: Normal speech and movement present Affect: normal affect Attitude: cooperative Thought process: Normal thought process present Thought content: Normal thought content present Insight: Good insight present (Psych) Judgement: Good judgement present (Psych) Results AMB Hemoglobin A1c AMB Hemoglobin A1c 7.5 % Last Edit by SRAVANTHI Almendarez on 01/07/24 08 :11 Results Reviewed Results Reviewed: Laboratory Last Values Hgb A1c (Clinic) 7.5 % (4.0-6.0) H 01/07/24 08:10 Assessment and Plan Assessment & Plan (1) Physical exam: Code(s): Z00.00 - Encounter for general adult medical examination without abnormal findings Plan: Labs ordered (2) Diabetes mellitus: Code(s): E11.9 - Type 2 diabetes mellitus without complications Plan: Labs ordered, work on diet and walking routine (3) Anemia: Code(s): D64.9 - Anemia, unspecified Plan: Labs ordered, pt has seen GI Plan The patient agreed to the use of a director of medical review for this encounter. Scribed for ELIZABETH Gordillo by Mellisa Collins director of medical review, on 01/07/2024 at 07:50 EST. Orders: Orders Complete Blood Count Auto Diff Today E11.9 - Type 2 diabetes mellitus without complications, Z00.00 - Encounter for general adult medical examination without abnormal findings Comprehensive [place]. Panel Fast Today E11.9 - Type 2 diabetes mellitus without complications, Z00.00 - Encounter for general adult medical examination without abnormal findings Microalbumin, Random (w Creat) Today E11.9 - Type 2 diabetes mellitus without complications, Z00.00 - Encounter for general adult medical examination without abnormal findings Ferritin Today D64.9 - Anemia, unspecified TSH reflex Free T4 Today E11.9 - Type 2 diabetes mellitus without complications, Z00.00 - Encounter for general adult medical examination without abnormal findin gs UA CC w/rflx Micro + Cult Today E11.9 - Type 2 diabetes mellitus without complications, Z00.00 - Encounter for general adult medical examination without abnormal findings Lipid Panel Today E11.9 - Type 2 diabetes mellitus without complications, Z00.00 - Encounter for general adult medical examination without abnormal findings IRON PROFILE Today D64.9 - Anemia, unspecified AMB Hemoglobin A1c Today Z13.9 - Encounter for screening, unspecified Coding Level of Care Code Est Pt Prev Care 40-64y(51829) Diagnoses Physical exam Z00.00 Diabetes mellitus E11.9 Anemia D64.9 Additional Codes MIKE-7 Assessment Billing - MIKE-7 Assessment Tool: MIKE-7 Assessment [id number] ([id number])
[2024-01-07 07:34] VITALS: BP 120/82; PULSE 78; O2SAT 98; BMI 36.4
== END 2024-01-07 08:17 | disposition home or self-care (01) ==
PROVIDERS: Visit Provider Nurse Practitioner Family
DX: Z00.00 Encounter for general adult medical examination without abnormal findings (principal); E11.9 Type 2 diabetes mellitus without complications; D64.9 Anemia, unspecified
CPT/HCPCS: 83036; 99396

== ENCOUNTER 2024-01-13 08:45 | Outpatient (REF) | payer BC, SELFPAY | END 2024-01-13 08:46 | disposition home or self-care (01) | LOC: HO.MAMMO 08:45 | PROVIDERS: PCP Nurse Practitioner Family; Visit Provider Nurse Practitioner Family | DX: Z12.31 Encounter for screening mammogram for malignant neoplasm of breast (principal) | CPT/HCPCS: 77063; 77067 ==

== ENCOUNTER → 2024-01-13 09:00 | Outpatient (BNV) | payer BC, SELFPAY | PROVIDERS: PCP Nurse Practitioner Family; Visit Provider Radiology Diagnostic Radiology | DX: Z12.31 Encounter for screening mammogram for malignant neoplasm of breast (principal) | CPT/HCPCS: 77063; 77067 ==

== ENCOUNTER 2024-05-18 08:50 | Outpatient (REF) | payer BC, SELFPAY ==
[2024-05-18 10:20] LABS: Appearance Urine Clear; Color Urine Yellow; Glucose Urine UA >=1000 mg/dL (Negative); Leukocyte Esterase Urine Negative (Negative); MANUAL DIFF FLAG NO; Nitrite Urine Negative (Negative); PH 5.5 (5.0-9.0); Specific Gravity - Urine 1.025 (1.005-1.025); UMIC TRIGGER UACC YES; Urine Blood Negative (Negative); Urine Ketones Negative (Negative); Urine Protein Negative (Neg-Trace)
[2024-05-18 10:26] LABS: Bacteria Urine None Seen (None Seen); Hyaline Casts Urine 0-2 /LPF (0-2); RBC Urine 0-2 /HPF (0-2); Squamous Epithelial Cell Urine 0-2 /HPF (0-2); WBC Urine 0-5 /HPF (0-5)
[2024-05-18 10:36] LABS: Basophils Percent Auto 0.9 % (0-2); Eosinophils Absolute Auto 0.3 X10*3/uL (0.0-0.4); Eosinophils Percent Auto 5.9 % (0-4); Hematocrit 43.4 % (37.0-47.0); Hemoglobin 14.6 g/dl (12.0-16.0); Imm Gran Abs Auto 0.01 X10*3/uL (0.00-0.03); Imm Gran Pct Auto 0.2 % (0.0-0.4); Lymphocytes Percent Auto 24.6 % (20-40); Mean Corpuscular HGB Conc 33.6 g/dl (31.0-35.0); Mean Corpuscular Hemoglobin 30.9 pg (27.0-33.0); Mean Corpuscular Volume 91.9 fL (80.0-98.0); Mean Platelet Volume 10.2 fL (9.4-12.3); Monocytes Absolute Auto 0.4 X10*3/uL (0.1-1.2); Monocytes Percent Auto 8.7 % (2-11); Neutrophils Absolute Auto 2.5 x10*3/uL (2.0-8.3); Neutrophils Percent Auto 59.7 % (45-73); Platelet Count 239 X10*3/uL (160-400); Red Blood Count 4.72 X10*6/uL (4.20-5.50); Red Cell Distribution Width 13.2 % (11.0-16.0); White Blood Count 4.2 X10*3/uL (4.8-10.8)
[2024-05-18 11:29] LABS: Creatinine Urine 66.93 mg/dL; Microalbum/Creatinine Ratio Ur 11.9 ug/mg cr (<30)
[2024-05-18 11:32] LABS: Alanine Aminotransferase 47 U/L (0-31); Albumin Level 4.5 g/dL (3.5-5.0); Alkaline Phosphatase 47 U/L (39-117); Anion Gap 14 (12-20); Aspartate Amino Transferase 24 U/L (5-31); Bilirubin Total 0.5 mg/dL (0.0-1.0); Blood Urea Nitrogen 13 mg/dL (9-16); Calcium 9.7 mg/dL (8.4-10.2); Carbon Dioxide 33 mmol/L (22-29); Chloride 91 mmol/L (96-108); Cholesterol 162 mg/dL (<200); Estimated Glomerular Filt Rate > 60; Glucose Fasting 176 mg/dL (60-99); HDL Cholesterol 54 mg/dL (>40); Iron 61 mcg/dL (30-160); LDL Cholesterol Calculated 76 mg/dL (<100); Percent Iron Saturation 18 % (15-50); Sodium 135 mmol/L (135-145); Total Iron Binding Capacity 348 mcg/dL (228-428); Total Protein 7.5 g/dL (6.5-8.0); Triglycerides 161 mg/dL (<150); Unsaturated Iron Binding 287 ug/dL
[2024-05-18 11:35] LABS: Ferritin 100 ng/mL (10-250); TSH reflex Free T4 1.29 uIU/mL (0.32-4.0)
== END 2024-05-18 08:51 | disposition home or self-care (01) ==
LOC: HO.HMGCLDS 08:50
PROVIDERS: PCP Nurse Practitioner Family; Visit Provider Nurse Practitioner Family
DX: Z00.00 Encounter for general adult medical examination without abnormal findings (principal); E11.9 Type 2 diabetes mellitus without complications; D64.9 Anemia, unspecified
CPT/HCPCS: 36415; 80053; 80061; 81001; 82043; 82570; 82728; 83540; 84443; 85025

== ENCOUNTER 2024-05-24 08:31 | Outpatient (REF) | payer BC, SELFPAY ==
[2024-05-24 11:00] LABS: Appearance Urine Clear; Color Urine Yellow; Glucose Urine UA >=1000 mg/dL (Negative); Leukocyte Esterase Urine Trace (Negative); Nitrite Urine Negative (Negative); PH 5.5 (5.0-9.0); Specific Gravity - Urine 1.025 (1.005-1.025); UMIC TRIGGER UACC YES; Urine Blood Negative (Negative); Urine Ketones Trace mg/dL (Negative); Urine Protein Trace mg/dL (Neg-Trace)
[2024-05-24 11:10] LABS: Bacteria Urine None Seen (None Seen); RBC Urine 0-2 /HPF (0-2); WBC Urine 0-5 /HPF (0-5)
[2024-05-24 11:13] LABS: Anion Gap 18 (12-20); Carbon Dioxide 28 mmol/L (22-29); Chloride 92 mmol/L (96-108); Potassium 3.2 mmol/L (3.3-5.1); Sodium 135 mmol/L (135-145)
== END 2024-05-24 08:32 | disposition home or self-care (01) ==
LOC: HO.HMGCLDS 08:31
PROVIDERS: PCP Nurse Practitioner Family; Visit Provider Nurse Practitioner Family
DX: E87.6 Hypokalemia (principal)
CPT/HCPCS: 36415; 80051; 81001

== ENCOUNTER 2024-05-26 07:46 | Outpatient (AMB) | payer BC, SELFPAY ==
--- NOTE | 2024-05-26 07:38 | A.OFFPC_ITS ---
Intake Visit Reasons: lab Review Allergies No Known Allergies Allergy (Verified 01/07/24 07:35) Medication List - Last Reconciled 05/26/24 by ELIZABETH Isaac albuterol sulfate 90 mcg/actuation 1 inh inhalation QID PRN bisacodyl (Dulcolax (bisacodyl)) 20 mg (4 x 5 mg) PO ONCE 1 day diltiazem HCl CD 360 mg PO DAILY dulaglutide 4.5 mg (0.5 mL) subcut QWEEK empagliflozin (Jardiance) 25 mg PO DAILY 90 days etanercept mg subcut QWEEK ferrous sulfate 325 mg PO DAILY folic acid 1 mg PO DAILY hydrochlorothiazide 25 mg PO DAILY lisinopril 40 mg PO DAILY metformin 1,000 mg PO BID methotrexate (PF) 15 mg subcut QWEEK metoprolol succinate ER 100 mg PO DAILY OneTouch Ultra Test (blood sugar diagnostic) test blood sugar TID NS OneTouch Ultra2 Meter (blood-glucose meter) TID testing NS OneTouch UltraSoft 2 Lancet (lancets) TID testing NS polyethylene glycol 3350 (Miralax) 238 grams PO ONCE PRN 1 day potassium chloride ER 10 mEq PO DAILY 30 days simvastatin 80 mg PO BEDTIME Tobacco use date assessed: 01/07/24 Dental Screening Dental Screen Date: 01/07/24 HPI lab Review HPI Details Pt is a diabetic, on an AURA and a statin. Last A1C was 7.5, due for repeat, will obtain at next office visit. Microalbumin is up to date. Denies polyuria, polydipsia, and neuropathy. Pt denies any signs and symptoms of hypoglycemia and does know how to correct it. Eye exam is scheduled. Pt has a hx of hypokalemia. She was on potassium 10mEq but stopped this for 2 months (which I was not aware of). Pt is now taking 20mEq, she will switch back to 10mEq. [facility] Medical History Kidney cysts Menopausal vaginal dryness On beta bill at home Lipid disorder Rheumatoid arthritis Hypertension, essential Diabetes mellitus Surgical History History of back surgery Hx of cholecystectomy Family History Father Heart disease Myocardial infarction Mother History of CVA (cerebrovascular accident) Brother No problems noted. Sister No problems noted. Daughter No problems noted. Daughter No problems noted. Social History Housing: House Alcohol intake: current Alcohol intake frequency: holidays/special occasions only Patient Tobacco Use Status: Former Tobacco user Years Smoked: quit 12 years ago e-Cigarette/Vaping Use: Never Used Second Hand Smoke Exposure: No Current occupational status: employed Current occupation: [employer] Current occupational exposures/hazards: No Sexual orientation: Straight/Heterosexual Gender identity: Female Cognitive needs: No Hearing needs: No Vision needs: No Questionnaire Thrive Questionnaire Date Thrive assessed: 05/18/24 MIKE-7 AMB Questionnaire MIKE-7 Date MIKE - 7 assessed: 01/07/24 Source: Developed by Drs. Cecil Montez, Rubi Kenyon, Sha Sultana and colleagues, with an educational gladys from [employer]. Review of Systems Const Reports as per HPI Physical exam (Primary Care) Tobacco/Smoking Status: Tobacco use Status Tobacco use date assessed 01/07/24 05/26/24 07:41 Patient Tobacco Use Status Former Tobacco user 05/26/24 07:41 e-Cigarette/Vaping Use Never Used 05/26/24 07:41 Thrive Assessment: Date of Thrive Assessment Date Thrive assessed 05/18/24 05/26/24 07:41 Const General: cooperative Orientation/consciousness: patient oriented x3 Neuro General: patient oriented x3 Psych Appearance: grossly normal Mental Status: mental status grossly normal Speech and movement: Clear speech present Affect: normal affect Attitude: cooperative Thought process: Normal thought process present Thought content: Normal thought content present Insight: Good insight present (Psych) Judgement: Good judgement present (Psych) Telehealth Telehealth Telehealth Platform: [facility] Location of provider rendering services: practice address Location of patient: address on file Patient Identification confirmed using: Name, : Yes Telehealth method: video Patient verbally consented to treatment: Yes Patient verbally consented to billing insurance company: Yes Patient informed of any privacy concerns related to visit: Yes Minutes spent on Phone/Video with Pt.: 10 Assessment and Plan Assessment & Plan (1) Hypokalemia: Code(s): E87.6 - Hypokalemia Plan: Pt is currently taking potassim 20mEq, she will switch to 10mEq (2) Diabetes mellitus: Code(s): E11.9 - Type 2 diabetes mellitus without complications Plan: Will obtain A1C at next office visit Plan The patient agreed to the use of a biomedical engineer for this encounter. Scribed for ELIZABETH Gordillo by bassem Ocampo scribe, on 05/26/2024 at 07:40 EST. Medications: Changed From potassium chloride ER 20 mEq PO DAILY 30 days 30 tabs 2RF To potassium chloride ER 10 mEq PO DAILY 30 days 30 tabs 2RF Coding Level of Care Code Tele Est Pt Level 3 (03816) Diagnoses Hypokalemia E87.6 Diabetes mellitus E11.9
== END 2024-05-26 09:11 | disposition home or self-care (01) ==
LOC: HO.HMGC 07:46
PROVIDERS: PCP Nurse Practitioner Family; Visit Provider Nurse Practitioner Family
DX: E87.6 Hypokalemia (principal); E11.9 Type 2 diabetes mellitus without complications
CPT/HCPCS: 99441

== ENCOUNTER 2024-09-07 08:26 | Outpatient (AMB) | payer BC, SELFPAY ==
[2024-09-07 08:28] VITALS: BP 112/72; PULSE 74; O2SAT 97; BMI 36.7
--- NOTE | 2024-09-07 08:28 | MHC.PC.OV ---
Vital Signs 09/07/24 08:28 Height 5 ft 4 in Weight 214 lb BMI 36.7 BP 112/72 Blood Pressure Location Lt brachial Position Sitting Pulse 74 Pulse Source Pulse Oximeter Pulse Oximetry (%) 97 Oxygen Delivery Method Room Air Intake Visit Reasons: Pre-Op cataract surgery Intake Note: pt is here for here pre op cataract surgery @ [facility] [place]. no ekg or labs needed. just need clearance from PCP. 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: No Accompanied by: Self / Same As Patient Allergies No Known Allergies Allergy (Verified 09/07/24 08:56) Medication List - Last Reconciled 09/07/24 by Justin Becker, [facility]- albuterol sulfate 90 mcg/actuation 1 inh inhalation QID PRN diltiazem HCl CD 360 mg PO DAILY dulaglutide 4.5 mg (0.5 mL) subcut QWEEK empagliflozin (Jardiance) 25 mg PO DAILY 90 days etanercept mg subcut QWEEK ferrous sulfate 325 mg PO DAILY folic acid 1 mg PO DAILY hydrochlorothiazide 25 mg PO DAILY lisinopril 40 mg PO DAILY metformin 1,000 mg PO BID metoprolol succinate ER 100 mg PO DAILY OneTouch Ultra Test (blood sugar diagnostic) test blood sugar TID NS OneTouch Ultra2 Meter (blood-glucose meter) TID testing NS OneTouch UltraSoft 2 Lancet (lancets) TID testing NS potassium chloride ER 10 mEq PO DAILY simvastatin 80 mg PO BEDTIME Tobacco use date assessed: 01/07/24 Dental Screening Dental Screen Date: 01/07/24 HPI Pre-Op cataract surgery HPI Details History of Present Illness The patient is a 59-year-old female presenting with cataract surgery clearance. The patient is looking forward to having the cataract procedure completed. The patient has been evaluated and no recent signs of infection such as fevers, chills, shortness of breath, nausea, vomiting, or diarrhea were reported, which are relevant prior to undergoing her scheduled surgical procedure. Social History Review of Systems Physical Exam - Cardiovascular- S1S2 with faint systolic murmur - Respiratory- Lungs clear - Extremities- No edema - Lymphatic- No lymphadenopathy in the neck Results Plan 1. Cataract: Patient is cleared for cataract surgery from my standpoint based on the current physical exam findings with no signs of active infection or other contraindications. Patient was informed and verbally consented to the use of an ambient scribe for clinic note documentation during this visit. Discussion Notes I discussed with the patient the clearance for cataract surgery, emphasizing the importance of not having any signs of infection prior to surgical procedures. We went over the benefits of proceeding with the surgery given her current exam findings, which indicate no active contraindications. The patient expressed eagerness to proceed with the cataract surgery. Patient Instructions - Proceed with scheduled cataract surgery. - Monitor for any signs of infection such as fever or chills, and report promptly. - Follow any specific pre-operative instructions provided by the surgical team. [facility] Medical History Kidney cysts Menopausal vaginal dryness On beta bill at home Lipid disorder Rheumatoid arthritis Hypertension, essential Diabetes mellitus Surgical History History of back surgery Hx of cholecystectomy Family History Father Heart disease Myocardial infarction Mother History of CVA (cerebrovascular accident) Brother No problems noted. Sister No problems noted. Daughter No problems noted. Daughter No problems noted. Social History Housing: House Alcohol intake: current Alcohol intake frequency: holidays/special occasions only Patient Tobacco Use Status: Former Tobacco user Years Smoked: quit 12 years ago e-Cigarette/Vaping Use: Never Used Second Hand Smoke Exposure: No Current occupational status: employed Current occupation: [email or web address] Current occupational exposures/hazards: No Sexual orientation: Straight/Heterosexual Gender identity: Female Cognitive needs: No Hearing needs: No Vision needs: No Questionnaire Thrive Questionnaire Date Thrive assessed: 05/18/24 Do you have trouble paying for medicines?: No Do you have trouble getting transportation to medical appointments?: No Do you have trouble paying your heating and electricity bill?: No Do you have trouble taking care of your child, family member or friend?: No Do you have trouble with day-to-day activities such as bathing, preparing meals, shopping, managing finances, etc.?: No Are you currently unemployed and looking for a job?: No Are you interested in more education?: No Please select the resources that you would like help with: None THRIVE Score: 0 AUDIT C Alcohol Use Questionnaire (AUDIT-C) 1. How often do you have a drink containing alcohol?: 2-4 times a month 2. How many drinks containing alcohol do you have on a typical day when you are drinking?: 1 or 2 3. How often do you have six or more drinks on one occasion?: Less than monthly Total Score: 3 Score Reviewed/Action Taken: Yes MIKE-7 AMB Questionnaire MIKE-7 Date MIKE - 7 assessed: 09/07/24 Feeling nervous, anxious, or on edge: 0 = Not at all Not being able to stop or control worryin = Not at all Worrying too much about different things: 0 = Not at all Trouble relaxin = Not at all Being so restless that it is hard to sit still: 0 = Not at all Becoming easily annoyed or irritable: 0 = Not at all Feeling afraid as if something awful might happen: 0 = Not at all Total MIKE-7 score (0-4 normal; 5-9 mild; 10-14 moderate; 15-21 severe): 0 Source: Developed by Drs. Cecil Montez, Rubi Kenyon, Sha Sultana and colleagues, with an educational gladys from [employer]. MIKE-7 Assessment Billing MIKE-7 Assessment Tool: MIKE-7 Assessment 35999 Physical exam (Primary Care) Vital Signs: Last Vital Signs Pulse 74 09/07/24 08:28 BP 112/72 09/07/24 08:28 Pulse Ox 97 09/07/24 08:28 Oxygen Delivery Method Room Air 09/07/24 08:28 BMI result Body Mass Index 36.7 Tobacco/Smoking Status: Tobacco use Status Tobacco use date assessed 01/07/24 09/07/24 08:31 Patient Tobacco Use Status Former Tobacco user 09/07/24 08:31 e-Cigarette/Vaping Use Never Used 09/07/24 08:31 Thrive Assessment: Date of Thrive Assessment Date Thrive assessed 05/18/24 09/07/24 08:31 Results AMB Hemoglobin A1c AMB Hemoglobin A1c 7.9 % Last Edit by Ramón Wilson CMA on 09/07/24 08:51 Coding Level of Care Code Est Pt Level 3 (20671) Diagnoses Pre-op evaluation Z01.818 Additional Codes MIKE-7 Assessment Billing - MIKE-7 Assessment Tool: MIKE-7 Assessment 23633 ([id number]) Assessment & Plan Assessment & Plan (1) Pre-op evaluation: Code(s): Z01.818 - Encounter for other preprocedural examination Category: Medical Plan . Orders: Orders Comprehensive Met. Panel Today Z01.818 - Encounter for other preprocedural examination AMB Hemoglobin A1c Today Z13.9 - Encounter for screening, unspecified Complete Blood Count Auto Diff Today Z01.818 - Encounter for other preprocedural examination TSH reflex Free T4 Today Z01.818 - Encounter for other preprocedural examination UA CC w/rflx Micro + Cult Today Z01.818 - Encounter for other preprocedural examination
== END 2024-09-07 09:26 | disposition home or self-care (01) ==
PROVIDERS: PCP Nurse Practitioner Family; Visit Provider Nurse Practitioner Family
DX: Z13.9 Encounter for screening, unspecified (principal); Z01.818 Encounter for other preprocedural examination

== ENCOUNTER → 2024-09-07 08:26 | Outpatient (BNVA) | payer BC, SELFPAY | PROVIDERS: PCP Nurse Practitioner Family; Visit Provider Nurse Practitioner Family | DX: Z01.818 Encounter for other preprocedural examination (principal); H26.9 Unspecified cataract; E11.9 Type 2 diabetes mellitus without complications; I10 Essential (primary) hypertension | CPT/HCPCS: 83036; 96127 ==

== ENCOUNTER 2024-09-13 06:24 | Day surgery (SDC) | payer BC, SELFPAY ==
[2024-09-08 09:13] VITALS: BMI 36.7
--- NOTE | 2024-09-09 14:26 | P.CONAN_ITS ---
Documented by User: Prudence Lara NP 09/09/24 14:27 HPI - Anesthesia Eval Consult details Narrative: 59yo F for Left Cataract Extraction IOL Insertion Right eye 2021: Fent 50, Midaz 2 Anesthesia Pre-Procedure Meds Is the patient on any of the following meds?: GLP1/DPP4 and SGLT2 Inhib PMFSH Active Problems Active Problems: All Active Problems Dilated intrahepatic bile duct (Acute) Elevated liver enzymes (Acute) Menopausal vaginal dryness (Acute) Occult blood in stools (Acute) Anemia (Acute) Screening for cervical cancer (Acute) Screen for colon cancer (Acute) Hypokalemia (Acute) Pre-op evaluation (Acute) Pre-op evaluation (Acute) Physical exam (Acute) Systolic murmur (Acute) Screening for colon cancer (Acute) Lipid disorder (Acute) Rheumatoid arthritis (Acute) Hypertension, essential (Acute) Diabetes mellitus (Acute) Past Medical History Medical History (Updated 09/08/24 @ 09:12 by Gabriela Narvaez RN) Anemia Heartburn Murmur Asthma Kidney cysts On beta bill at home Lipid disorder Rheumatoid arthritis Hypertension, essential Diabetes mellitus Family History Family History Father Heart disease Myocardial infarction Mother History of CVA (cerebrovascular accident) Brother No problems noted. Sister No problems noted. Daughter No problems noted. Daughter No problems noted. Family history of problems with anesthesia: No Surgical History Surgical History (Updated 09/08/24 @ 09:13 by Gabriela Narvaez RN) Hx of right cataract extraction Hx of cholecystectomy History of back surgery History of Problems with Anesthesia: No Social History Social History Housing: House Are you a primary progressive care manager to a significant other at home: No Do you presently have visiting nurse or other home services: No Alcohol intake: current Alcohol intake frequency: holidays/special occasions only Patient Tobacco Use Status: Former Tobacco user Tobacco use type: Cigarette Years Smoked: 20 e-Cigarette/Vaping Use: Never Used Second Hand Smoke Exposure: No Use of substances other than those prescribed or required for medical reasons: No Have you been hit, kicked, punched, or otherwise hurt by someone within the past year? If so, by whom?: No Spiritual Healthcare Practices: none Quaker Healthcare Practices: Holiness Cultural Healthcare Practices: none Are you DNR?: No Advance Directives: No Advance Directives Information Provided: Yes Advance Directives on File: No Recently lost weight without trying: No Eating poorly because of decreased appetite: No Nutrition Risks: No Nutritional Risk FDLMP: n/a Poor oral hygiene: No Current occupational status: employed Current occupation: [employer] Current occupational exposures/hazards: No Sexual orientation: Straight/Heterosexual Gender identity: Female Cognitive needs: No Hearing needs: No Vision needs: No Meds Allergies Allergy/AdvReac Type Severity Reaction Status Date / Time No Known Allergies Allergy Verified 09/13/24 06:58 Home Medications ?Medication ?Instructions ?Recorded ?Confirmed ?Last Taken ?Type etanercept 50 mg/mL (1 mL) 50 mg subcut QWEEK 08/04/20 09/13/24 Unknown History subcutaneous pen injector folic acid 1 mg tablet 1 mg PO DAILY 02/28/21 09/13/24 Unknown History ferrous sulfate 325 mg (65 mg 325 mg PO DAILY 05/14/23 09/13/24 Unknown History iron) tablet diltiazem HCl 360 mg 360 mg PO QPM 09/08/24 09/13/24 Unknown History capsule,extended release 24 hr lisinopril 40 mg tablet 40 mg PO QPM 09/08/24 09/13/24 Unknown History metoprolol succinate 100 mg 100 mg PO QPM 09/08/24 09/13/24 Unknown History tablet,extended release 24 hr Exam Height,Weight and Vital Signs: Height 5 ft 4 in Weight 97.069 kg Assessment and Plan Assessment Anesthesia Assessment: Chart Reviewed Final Anesthetic Review Family History of Problems with Anesthesia: No History of Problems with Anesthesia: No Documented by User: Anita Garcia MD 09/13/24 07:14 [facility] Past Medical History Medical History (Updated 09/08/24 @ 09:12 by Gabriela Narvaez RN) Anemia Heartburn Murmur Asthma Kidney cysts On beta bill at home Lipid disorder Rheumatoid arthritis Hypertension, essential Diabetes mellitus Family History Family History Father Heart disease Myocardial infarction Mother History of CVA (cerebrovascular accident) Brother No problems noted. Sister No problems noted. Daughter No problems noted. Daughter No problems noted. Surgical History Surgical History (Updated 09/08/24 @ 09:13 by Gabriela Narvaez RN) Hx of right cataract extraction Hx of cholecystectomy History of back surgery Social History Social History Housing: House Are you a primary progressive care manager to a significant other at home: No Do you presently have visiting nurse or other home services: No Alcohol intake: current Alcohol intake frequency: holidays/special occasions only Patient Tobacco Use Status: Former Tobacco user Tobacco use type: Cigarette Years Smoked: 20 e-Cigarette/Vaping Use: Never Used Second Hand Smoke Exposure: No Use of substances other than those prescribed or required for medical reasons: No Have you been hit, kicked, punched, or otherwise hurt by someone within the past year? If so, by whom?: No Spiritual Healthcare Practices: none Quaker Healthcare Practices: Holiness Cultural Healthcare Practices: none Are you DNR?: No Advance Directives: No Advance Directives Information Provided: Yes Advance Directives on File: No Recently lost weight without trying: No Eating poorly because of decreased appetite: No Nutrition Risks: No Nutritional Risk FDLMP: n/a Poor oral hygiene: No Current occupational status: employed Current occupation: [employer] Current occupational exposures/hazards: No Sexual orientation: Straight/Heterosexual Gender identity: Female Cognitive needs: No Hearing needs: No Vision needs: No Meds Allergies Allergy/AdvReac Type Severity Reaction Status Date / Time No Known Allergies Allergy Verified 09/13/24 06:58 Home Medications ?Medication ?Instructions ?Recorded ?Confirmed ?Last Taken ?Type etanercept 50 mg/mL (1 mL) 50 mg subcut QWEEK 08/04/20 09/13/24 Unknown History subcutaneous pen injector folic acid 1 mg tablet 1 mg PO DAILY 02/28/21 09/13/24 Unknown History ferrous sulfate 325 mg (65 mg 325 mg PO DAILY 05/14/23 09/13/24 Unknown History iron) tablet diltiazem HCl 360 mg 360 mg PO QPM 12/04/24 12/09/24 Unknown History capsule,extended release 24 hr lisinopril 40 mg tablet 40 mg PO QPM 09/08/24 09/13/24 Unknown History metoprolol succinate 100 mg 100 mg PO QPM 09/08/24 09/13/24 Unknown History tablet,extended release 24 hr Exam Airway Mallampati Class: II (bridge bottom, caps lateral) TM Dist: >3cm Neck ROM: Full Heart: rrr Lungs: cta Assessment and Plan Assessment Anesthesia Assessment: Anesthesia Plan Discussed Final Anesthetic Review NPO: Yes ASA Class: III Final Preanesthetic Review: No Changes in Pt Med Stat, Meds/Allgs Chart Reviewed and Consent Obtained/Reviewed Patient Risk: Low Procedure Risk: Low Anesthetic Plan Anesthetic Plan: MAC: Disposition: Standard PACU
[2024-09-13 06:59] VITALS: BP 126/72; PULSE 71; RESP 16; TEMP 36; O2SAT 97; BMI 36.4
[2024-09-13] MEDS: Tetracaine HCl/PF 0.5% Oph Sol 4 ML DROPS 1 DROP EYE-LEFT (07:05)
[2024-09-13] MEDS: Cyclopentolate 1 % Ophth Sol 2 ML DRPBTL 1 DROP EYE-LEFT ×3 (07:16→07:31)
[2024-09-13] MEDS: Tropicamide 1 % Ophth Sol 3 ML BTL 1 DROP EYE-LEFT ×3 (07:18→07:32)
[2024-09-13] MEDS: Phenylephrine HCL 2.5% Oph SoL 2 ML BOTTLE 1 DROP EYE-LEFT ×3 (07:22→07:34)
[2024-09-13] MEDS: Ketorolac Tromethamine 0.5% Op 10 ML DROPS 1 DROP EYE-LEFT ×2 (07:22→07:29)
[2024-09-13 07:23] LABS: Glucose, Whole Blood 250 mg/dL (60-115)
--- NOTE | 2024-09-13 07:31 | MHC.SHP ---
Pre-Procedural Eval Section A - 24 Hr Update-Section A only Date of Service: 09/13/24 The patient is an INPATIENT: No Changes since office visit: No Cold of Flu in the past 2 weeks, No New Medical Problems, No Changes in Medication and No Patient answered all questions The patient has been examined within 24 hours of the surgical procedure. The History & Physical has been completed within 30 days and I have reviewed it.: Yes Section B - Complete if H&P > 30 days Chief Complaint: Age-related nuclear cataract, left eye Allergies: Allergies Allergy/AdvReac Type Severity Reaction Status Date / Time No Known Allergies Allergy Verified 09/13/24 06:58 Plan Diagnosis/Plan: Unchanged I have reviewed the history and physical and performed a pertinent physical examination on my patient. No changes have occurred unless specified. Time Spent With Patient Time: Total time managing care of this patient today ____ minutes.
--- NOTE | 2024-09-13 07:31 | HO.PNOPHT ---
Ophthalmology Procedure Procedure Date of Service: 09/13/24 Ophthalmology Viscoelastic: Healon Duet Dual Pack Pro Ophthalmology Lenses: TECNIS [id number] (20.5) Procedure Notes: PREOPERATIVE DIAGNOSIS: Decreased visual acuity left eye secondary to cataract POSTOPERATIVE DIAGNOSIS: Same PROCEDURE: Left cataract extraction with intraocular lens insertion SURGEON: Skinny Winters M.D. ANESTHESIA: Topical/MAC ESTIMATED BLOOD LOSS: None COMPLICATIONS: None After obtaining informed consent, the patient was brought to the operation room suite and placed in the supine position. After adequate sedation per anesthesia, topical drops of Tetracaine were given to the left eye. The eye was then prepped and draped in the usual sterile fashion. The operating room microscope was then positioned over the operative eye and a lid speculum placed. A paracentesis was created. Viscoelastic was then instilled into the anterior chamber. A three plane incision was then created temporally, utilizing a 2.85 mm keratome. Capsulotomy forceps were then utilized to create a circular tear capsulotomy. Hydrodissection and hydrodelineation were carried out until adequate mobilization of the nucleus occurred. Phacoemulsification was then utilized to remove the dense central nucleus followed by removal of the cortical material utilizing the automated aspiration irrigation unit. Viscoat elastic was instilled into the posterior capsular bag followed by placement of a posterior chamber intraocular lens without difficulty. The residual Viscoat elastic was then removed utilizing the automated IA machine. The wound was check and found to be watertight. The patient tolerated the procedure well and the lid speculum was removed. Intracameral injection of Vigamox 0.1 mL followed by a subtenon injection of Kenalog-40 0.2 mL were administered. The patient will be seen in the a.m.
[2024-09-13 08:01] VITALS: BP 133/67; PULSE 70; RESP 16; TEMP 36.8; O2SAT 98
== END 2024-09-13 08:16 | disposition home or self-care (01) ==
PROVIDERS: PCP Nurse Practitioner Family; Visit Provider Ophthalmology
PROC: (CPT 66985; principal; 2024-09-13 07:30)
DX: H25.12 Age-related nuclear cataract, left eye (principal); H54.7 Unspecified visual loss; H35.54 Dystrophies primarily involving the retinal pigment epithelium; H18.413 Arcus senilis, bilateral; H43.393 Other vitreous opacities, bilateral; Z96.1 Presence of intraocular lens; I10 Essential (primary) hypertension; E11.9 Type 2 diabetes mellitus without complications; M06.9 Rheumatoid arthritis, unspecified; Z79.84 Long term (current) use of oral hypoglycemic drugs; Z79.85 Long-term (current) use of injectable non-insulin antidiabetic drugs; Z79.899 Other long term (current) drug therapy; Z87.891 Personal history of nicotine dependence
CPT/HCPCS: 66984; 82947; J2250; J3010; J3301; V2632

== ENCOUNTER 2024-09-22 06:22 | Outpatient (REF) | payer BC, SELFPAY ==
[2024-09-22 10:17] LABS: MANUAL DIFF FLAG NO
[2024-09-22 10:23] LABS: Appearance Urine Clear; Color Urine Yellow; Glucose Urine UA >=1000 mg/dL (Negative); Leukocyte Esterase Urine Negative (Negative); Nitrite Urine Negative (Negative); PH 5.5 (5.0-9.0); Specific Gravity - Urine 1.025 (1.005-1.025); UMIC TRIGGER UACC YES; Urine Blood Negative (Negative); Urine Ketones Trace mg/dL (Negative); Urine Protein Negative (Neg-Trace)
[2024-09-22 10:29] LABS: Basophils Absolute Auto 0.1 X10*3/uL (0.0-0.2); Basophils Percent Auto 1.1 % (0-2); Eosinophils Absolute Auto 0.3 X10*3/uL (0.0-0.4); Eosinophils Percent Auto 6.2 % (0-4); Hematocrit 42.6 % (37.0-47.0); Hemoglobin 14.4 g/dl (12.0-16.0); Imm Gran Abs Auto 0.01 X10*3/uL (0.00-0.03); Imm Gran Pct Auto 0.2 % (0.0-0.4); Lymphocytes Absolute Auto 2.1 X10*3/uL (1.2-4.9); Lymphocytes Percent Auto 37.5 % (20-40); Mean Corpuscular HGB Conc 33.8 g/dl (31.0-35.0); Mean Corpuscular Hemoglobin 30.8 pg (27.0-33.0); Mean Platelet Volume 10.6 fL (9.4-12.3); Monocytes Absolute Auto 0.4 X10*3/uL (0.1-1.2); Neutrophils Absolute Auto 2.6 x10*3/uL (2.0-8.3); Platelet Count 268 X10*3/uL (160-400); Red Blood Count 4.68 X10*6/uL (4.20-5.50); Red Cell Distribution Width 12.6 % (11.0-16.0); White Blood Count 5.5 X10*3/uL (4.8-10.8)
[2024-09-22 10:30] LABS: Bacteria Urine None Seen (None Seen); Hyaline Casts Urine 0-2 /LPF (0-2); RBC Urine 0-2 /HPF (0-2); Squamous Epithelial Cell Urine 0-2 /HPF (0-2); WBC Urine 0-5 /HPF (0-5)
[2024-09-22 10:56] LABS: Alanine Aminotransferase 40 U/L (0-31); Albumin Level 4.3 g/dL (3.5-5.0); Alkaline Phosphatase 46 U/L (39-117); Anion Gap 16 (12-20); Aspartate Amino Transferase 27 U/L (5-31); Bilirubin Total 0.5 mg/dL (0.0-1.0); Blood Urea Nitrogen 15 mg/dL (9-16); Calcium 9.5 mg/dL (8.4-10.2); Carbon Dioxide 27 mmol/L (22-29); Chloride 98 mmol/L (96-108); Estimated Glomerular Filt Rate > 60; Glucose Random 186 mg/dL (60-115); Potassium 3.5 mmol/L (3.3-5.1); Sodium 137 mmol/L (135-145); Total Protein 7.4 g/dL (6.5-8.0)
== END 2024-09-22 06:23 | disposition home or self-care (01) ==
LOC: HO.HMGCLDS 06:22
PROVIDERS: PCP Nurse Practitioner Family; Visit Provider Nurse Practitioner Family
DX: Z01.818 Encounter for other preprocedural examination (principal)
CPT/HCPCS: 36415; 80053; 81001; 84443; 85025

== ENCOUNTER 2024-09-23 12:49 | Outpatient (AMB) | payer BC, SELFPAY ==
[2024-09-23 12:54] VITALS: BP 122/70; PULSE 84; O2SAT 96; BMI 37.1
--- NOTE | 2024-09-23 12:54 | MHC.PC.OV ---
Vital Signs 09/23/24 12:54 Height 5 ft 4 in Weight 216 lb BMI 37.1 BP 122/70 Blood Pressure Location Lt brachial Position Sitting Pulse 84 Pulse Source Pulse Oximeter Pulse Oximetry (%) 96 Oxygen Delivery Method Room Air Intake Visit Reasons: 4 fri/ Patient : No Allergies No Known Allergies Allergy (Verified 09/23/24 12:54) Tobacco use date assessed: 09/23/24 Dental Screening Dental Screen Date: 09/23/24 Did you have a dental visit in the last 12 months?: Yes Did you have a dental problem in the last 6 months where you did not have access to dental care?: No Was dental information given to patient?: Patient has dentist HPI Fri HPI Details Chief Complaint Follow-up appointment for diabetes management. History of Present Illness The patient is a 59-year-old female presenting with Type 2 Diabetes Mellitus. She has been on the highest dose of Trulicity, although she reports better efficacy and weight management with Ozempic, which was used previously. Currently, her last recorded hemoglobin A1c level is 7.9%. She denies experiencing symptoms of polyuria, polydipsia, or neuropathy. There is no history of pancreatitis. The patient is informed on the workings of her medication and is aware of the procedures to follow in the event of any queries or adverse effects. Furthermore, her microalbumin levels are up to date, and she is knowledgeable about recognizing and correcting hypoglycemia. eye exam is up to date Social History - Weight management and medication adherence were discussed in the context of diabetes management. Health Maintenance - Discussed recognition and correction of hypoglycemia. - Microalbumin screening is current. Review of Systems - Cardiovascular: Denies any symptoms of polyuria or polydipsia. - Neurological: Denies any neuropathy. - Gastrointestinal: Denies any history of pancreatitis. -denies any cp, sob, fevers, chills, si or hi Physical Exam General: Cooperative, healthy appearing, comfortable, no acute distress and well developed Orientation: Patient oriented x3 Limitations: No limitations Head: Normal to inspection Ears: Hearing grossly normal bilaterally Nose: Normal external nose present Face and sinus: Normal facial exam Eyes: Appearance normal, both eyes and all related structures Neck: Normal visual inspection and Yes full ROM Respiratory: Normal respiratory effort and able to speak in complete sentences. Clear to auscultation bilaterally Cardiovascular: Regular rate and rhythm. Normal S1 and S2 with a very faint systolic murmur GI: Normal to inspection. Soft to palpation and nontender Skin: No rashes or lesions noted Neuro: Patient oriented x3 Extremities: Normal to inspection, positive sensation to feet with use of monofilament Results - Labs: Hemoglobin A1c at 7.9%. - Labs: Microalbumin levels are current and up to date. Plan - Transition from Trulicity to Ozempic for better diabetes control and weight management. - Monitor and educate regarding the new medication's effects on diabetes and weight. - Continue monitoring hemoglobin A1c levels for diabetes control. - Educate on recognizing signs and remedies for hypoglycemia as part of diabetes management safety. Patient was informed and verbally consented to the use of an ambient scribe for clinic note documentation during this visit. Discussion Notes I discussed with the patient the decision to transition back to Ozempic due to better efficacy for her weight loss and diabetes control, given her previous positive experience with it compared to Trulicity. We reviewed how the medication functions, and I emphasized the importance of vigilance for any signs of pancreatitis, given the change. I reassured her of my availability for any questions or issues that may arise with this change in therapy. We also discussed the importance of maintaining current microalbumin levels to prevent nephropathy and strategies to manage potential hypoglycemia. Patient Instructions - Start on Ozempic as discussed; discontinue Trulicity. - Monitor blood sugar levels closely and adjust lifestyle as needed. - Be vigilant for signs of low blood sugar and treat as needed. - Contact me if you have questions or concerns regarding the medication change. - Attend follow-up appointments for ongoing diabetes management. [facility] Medical History (Updated 09/08/24 @ 09:12 by Gabriela Narvaez RN) Anemia Heartburn Murmur Asthma Kidney cysts On beta bill at home Lipid disorder Rheumatoid arthritis Hypertension, essential Diabetes mellitus Surgical History (Updated 09/08/24 @ 09:13 by Gabriela Narvaez RN) Hx of right cataract extraction Hx of cholecystectomy History of back surgery Family History Father Heart disease Myocardial infarction Mother History of CVA (cerebrovascular accident) Brother No problems noted. Sister No problems noted. Daughter No problems noted. Daughter No problems noted. Social History Housing: House Are you a primary coronary care unit nurse to a significant other at home: No Do you presently have visiting nurse or other home services: No Alcohol intake: current Alcohol intake frequency: holidays/special occasions only Patient Tobacco Use Status: Former Tobacco user Tobacco use type: Cigarette Years Smoked: 20 e-Cigarette/Vaping Use: Never Used Second Hand Smoke Exposure: No Current occupational status: employed Current occupation: [employer] Current occupational exposures/hazards: No Sexual orientation: Straight/Heterosexual Gender identity: Female Cognitive needs: No Hearing needs: No Vision needs: No Questionnaire Thrive Questionnaire Date Thrive assessed: 09/23/24 I am a: Patient What is your living situation today?: I have a steady place to live Within the past 12 months, did the food you bought not last and you didn't have the money to get more?: Never true Do you have trouble paying for medicines?: No Do you have trouble getting transportation to medical appointments?: No Do you have trouble paying your heating and electricity bill?: No Do you have trouble taking care of your child, family member or friend?: No Do you have trouble with day-to-day activities such as bathing, preparing meals, shopping, managing finances, etc.?: No Are you currently unemployed and looking for a job?: No Are you interested in more education?: No Please select the resources that you would like help with: None Currently or been in a relationship where the following occur: No concerns reported THRIVE Score: 0 AUDIT C Alcohol Use Questionnaire (AUDIT-C) 1. How often do you have a drink containing alcohol?: 2-4 times a month 2. How many drinks containing alcohol do you have on a typical day when you are drinking?: 1 or 2 3. How often do you have six or more drinks on one occasion?: Less than monthly Total Score: 3 Score Reviewed/Action Taken: Yes MIKE-7 AMB Questionnaire MIKE-7 Date MIKE - 7 assessed: 09/07/24 Source: Developed by Drs. Cecil Montez, Rubi Kenyon, Sha Sultana and colleagues, with an educational gladys from [employer]. Physical exam (Primary Care) Vital Signs: Last Vital Signs Pulse 84 09/23/24 12:54 BP 122/70 09/23/24 12:54 Pulse Ox 96 09/23/24 12:54 Oxygen Delivery Method Room Air 09/23/24 12:54 BMI result Body Mass Index 37.1 Tobacco/Smoking Status: Tobacco use Status Tobacco use date assessed 09/23/24 09/23/24 12:59 Patient Tobacco Use Status Former Tobacco user 09/23/24 12:59 Tobacco use type Cigarette 09/23/24 12:59 e-Cigarette/Vaping Use Never Used 09/23/24 12:59 Thrive Assessment: Date of Thrive Assessment Date Thrive assessed 09/23/24 09/23/24 12:59 Currently or been in a relationship where the following occur: No concerns reported Coding Level of Care Code Est Pt Level 3 (48909) Diagnoses Diabetes mellitus E11.9 Assessment & Plan Assessment & Plan (1) Diabetes mellitus: Comment: type 2-dx ~ age 45-glucose usually [id number] Jardiance, Metformin, Trulicity Code(s): E11.9 - Type 2 diabetes mellitus without complications Category: Medical Plan . Orders: Orders Complete Blood Count Auto Diff Today E11.9 - Type 2 diabetes mellitus without complications TSH reflex Free T4 Today E11.9 - Type 2 diabetes mellitus without complications Lipid Panel Today E11.9 - Type 2 diabetes mellitus without complications Comprehensive [place]. Panel Fast Today E11.9 - Type 2 diabetes mellitus without complications UA CC w/rflx Micro + Cult Today E11.9 - Type 2 diabetes mellitus without complications Medications: New semaglutide (Ozempic) 1 mg (0.75 mL) subcut QWEEK 3 mL 0RF Discontinued dulaglutide TAKES ON WEDNESDAYS Discontinued Reason: Ancillary Entered New Order 4.5 mg (0.5 mL) subcut QWEEK 6 mL 1RF E11.9 - Type 2 diabetes mellitus without complications
== END 2024-09-23 13:50 | disposition home or self-care (01) ==
PROVIDERS: PCP Nurse Practitioner Family; Visit Provider Nurse Practitioner Family
DX: E11.9 Type 2 diabetes mellitus without complications (principal)

== ENCOUNTER 2025-01-18 08:57 | Outpatient (REF) | payer BC, SELFPAY | END 2025-01-18 08:58 | disposition home or self-care (01) | LOC: HO.MAMMO 08:57 | PROVIDERS: PCP Nurse Practitioner Family; Visit Provider Nurse Practitioner Family | DX: Z12.31 Encounter for screening mammogram for malignant neoplasm of breast (principal) | CPT/HCPCS: 77063; 77067 ==

== ENCOUNTER → 2025-01-18 09:00 | Outpatient (BNV) | payer BC, SELFPAY | PROVIDERS: PCP Nurse Practitioner Family; Visit Provider Internal Medicine | DX: Z12.31 Encounter for screening mammogram for malignant neoplasm of breast (principal) | CPT/HCPCS: 77063; 77067 ==

== ENCOUNTER 2025-02-11 07:40 | Outpatient (REF) | payer BC, SELFPAY ==
[2025-02-11 10:01] LABS: Appearance Urine Clear; Color Urine Yellow; Glucose Urine UA >=1000 mg/dL (Negative); Leukocyte Esterase Urine Negative (Negative); Nitrite Urine Negative (Negative); PH 5.5 (5.0-9.0); Specific Gravity - Urine 1.025 (1.005-1.025); UMIC TRIGGER UACC YES; Urine Blood Negative (Negative); Urine Ketones Negative (Negative); Urine Protein Negative (Neg-Trace)
[2025-02-11 10:01] LABS: MANUAL DIFF FLAG NO
[2025-02-11 10:08] LABS: Eosinophils Absolute Auto 0.3 X10*3/uL (0.0-0.4); Hematocrit 40.6 % (37.0-47.0); Hemoglobin 13.7 g/dl (12.0-16.0); Imm Gran Abs Auto 0.01 X10*3/uL (0.00-0.03); Imm Gran Pct Auto 0.2 % (0.0-0.4); Lymphocytes Absolute Auto 1.5 X10*3/uL (1.2-4.9); Lymphocytes Percent Auto 35.2 % (20-40); Mean Corpuscular HGB Conc 33.7 g/dl (31.0-35.0); Mean Corpuscular Hemoglobin 30.9 pg (27.0-33.0); Mean Corpuscular Volume 91.6 fL (80.0-98.0); Mean Platelet Volume 10.6 fL (9.4-12.3); Monocytes Absolute Auto 0.4 X10*3/uL (0.1-1.2); Monocytes Percent Auto 9.5 % (2-11); Neutrophils Absolute Auto 1.9 x10*3/uL (2.0-8.3); Neutrophils Percent Auto 47.1 % (45-73); Platelet Count 218 X10*3/uL (160-400); Red Blood Count 4.43 X10*6/uL (4.20-5.50); Red Cell Distribution Width 12.9 % (11.0-16.0); White Blood Count 4.1 X10*3/uL (4.8-10.8)
[2025-02-11 10:18] LABS: Bacteria Urine None Seen (None Seen); Hyaline Casts Urine 0-2 /LPF (0-2); RBC Urine 0-2 /HPF (0-2); Squamous Epithelial Cell Urine 0-2 /HPF (0-2); WBC Urine 0-5 /HPF (0-5)
[2025-02-11 10:39] LABS: Alanine Aminotransferase 61 U/L (0-31); Albumin Level 4.2 g/dL (3.5-5.0); Alkaline Phosphatase 44 U/L (39-117); Anion Gap 11 (12-20); Aspartate Amino Transferase 38 U/L (5-31); Bilirubin Total 0.4 mg/dL (0.0-1.0); Blood Urea Nitrogen 10 mg/dL (9-16); Calcium 9.4 mg/dL (8.4-10.2); Carbon Dioxide 31 mmol/L (22-29); Chloride 96 mmol/L (96-108); Cholesterol 156 mg/dL (<200); Estimated Glomerular Filt Rate > 60; Glucose Fasting 167 mg/dL (60-99); HDL Cholesterol 51 mg/dL (>40); LDL Cholesterol Calculated 80 mg/dL (<100); Potassium 3.4 mmol/L (3.3-5.1); Sodium 135 mmol/L (135-145); TSH reflex Free T4 1.65 uIU/mL (0.32-4.0); Total Protein 7.1 g/dL (6.5-8.0); Triglycerides 128 mg/dL (<150)
== END 2025-02-11 07:41 | disposition home or self-care (01) ==
LOC: HO.HMGCLDS 07:40
PROVIDERS: PCP Nurse Practitioner Family; Visit Provider Nurse Practitioner Family
DX: E11.9 Type 2 diabetes mellitus without complications (principal)
CPT/HCPCS: 36415; 80053; 80061; 81001; 81003; 84443; 85025

== ENCOUNTER 2025-02-14 07:27 | Outpatient (AMB) | payer BC, SELFPAY ==
--- NOTE | 2025-02-14 07:41 | MHC.PC.OV ---
Vital Signs 02/14/25 07:43 Height 5 ft 4 in Weight 215 lb BMI 36.9 BP 138/80 Blood Pressure Location Lt brachial Position Sitting Respiration 15 Pulse 76 Pulse Source Pulse Oximeter Temp 98.0 F Temp Source Oral Pulse Oximetry (%) 96 Oxygen Delivery Method Room Air Intake Visit Reasons: PE Allergies No Known Allergies Allergy (Verified 02/14/25 08:02) Medication List - Last Reconciled 02/14/25 by Justin Becker, [facility]- albuterol sulfate 90 mcg/actuation 1 inh inhalation QID PRN diazepam 5 mg PO DAILY PRN 7 days diltiazem HCl CD 360 mg PO DAILY empagliflozin (Jardiance) 25 mg PO DAILY 90 days etanercept 50 mg subcut QWEEK ferrous sulfate 325 mg PO DAILY hydrochlorothiazide 25 mg PO DAILY lisinopril 40 mg PO DAILY metformin 1,000 mg PO BID metoprolol succinate ER 100 mg PO DAILY OneTouch Ultra Test (blood sugar diagnostic) test blood sugar TID NS OneTouch Ultra2 Meter (blood-glucose meter) TID testing NS OneTouch UltraSoft 2 Lancet (lancets) TID testing NS potassium chloride ER 10 mEq PO DAILY semaglutide 2 mg (0.75 mL) subcut QWEEK simvastatin 80 mg PO BEDTIME Tobacco use date assessed: 02/14/25 Dental Screening Dental Screen Date: 02/14/25 Did you have a dental visit in the last 12 months?: Yes Did you have a dental problem in the last 6 months where you did not have access to dental care?: No Was dental information given to patient?: Patient has dentist HPI PE HPI Details History of Present Illness The patient is a 59-year-old female presenting for a routine physical examination and management of Type 2 Diabetes Mellitus. Although she is up-to-date with colon and mammogram screenings, her glycemic control is currently suboptimal with an A1c of 8.1%. She has not experienced symptoms typically associated with diabetes complications such as neuropathy, polyuria, or polydipsia. The patient is compliant with annual eye exams and under regular gynecological care. She is receiving treatment with an SGLT2 inhibitor and Metformin, acknowledging the need for dietary adjustments to improve her diabetes management. Elevated liver enzymes, will cont to monitor, US ordered, Hx of fatty liver Health Maintenance - Colonguard: Up-to-date - Mammogram: Up-to-date - Ophthalmologic examination: Annual eye exams - Vaccinations: Due for Tdap vaccination Social History Review of Systems - Neurological: Denies neuropathy - Genitourinary: Denies polyuria - Endocrine: Denies polydipsia -denies any fevers, chills, N/V, abd pains, urinary issues, si or hi Physical Exam General: Cooperative, healthy appearing, comfortable, no acute distress and well developed, obese Orientation: Patient oriented x3 Limitations: No limitations Head: Normal to inspection Ears: Hearing grossly normal bilaterally Nose: Normal external nose present Face and sinus: Normal facial exam Eyes: Appearance normal, both eyes and all related structures Neck: Normal visual inspection and Yes full ROM Respiratory: Normal respiratory effort and able to speak in complete sentences. Clear to auscultation bilaterally Cardiovascular: Regular rate and rhythm. Normal S1 and S2, murmur GI: Normal to inspection. Soft to palpation and nontender Skin: No rashes or lesions noted Neuro: Patient oriented x3 Extremities: Normal to inspection Results - Labs: Hemoglobin A1c: 8.1% Plan 1. 1%. We will proceed with increasing her Ozempic dosage to ameliorate glycemic control and continue current medications of an SGLT2 inhibitor and Metformin. Diet modifications were emphasized to aid in stabilizing blood sugars. Additionally, the patient was identified as needing a Tdap vaccination due to being due, which we plan to administer. Further follow-up will focus on assessing treatment efficacy and ensuring the patient's routine screenings and prevention measures are maintained.: Discussion Notes During the visit, I discussed the patient's elevated A1c and the necessity of adjusting her diabetes management plan, specifically by increasing the dosage of Ozempic. The benefits of such an escalation were detailed, emphasizing the potential improvement in glycemic control. We reviewed the importance of dietary changes and regular exercise in complementing pharmacological strategies. I advised administering a Tdap vaccination to keep current with immunizations. The patient was informed of the expected benefits and potential risks associated with medication adjustments and vaccination. The plan for regular follow-ups was discussed to ensure comprehensive management of her diabetes. Patient Instructions - Increase Ozempic dose as prescribed - Follow a diabetes-friendly diet - Monitor blood sugar levels regularly - Return for Tdap vaccination as scheduled - Continue regular screenings and eye exams - Follow up as discussed for diabetes management [facility] Medical History Anemia Heartburn Murmur Asthma Kidney cysts On beta bill at home Lipid disorder Rheumatoid arthritis Hypertension, essential Diabetes mellitus Surgical History Hx of right cataract extraction Hx of cholecystectomy History of back surgery Family History Father Heart disease Myocardial infarction Mother History of CVA (cerebrovascular accident) Brother No problems noted. Sister No problems noted. Daughter No problems noted. Daughter No problems noted. Social History Housing: House Are you a primary group care worker to a significant other at home: No Do you presently have visiting nurse or other home services: No Alcohol intake: current Alcohol intake frequency: holidays/special occasions only Patient Tobacco Use Status: Former Tobacco user Tobacco use type: Cigarette Years Smoked: 20 e-Cigarette/Vaping Use: Never Used Second Hand Smoke Exposure: No Current occupational status: employed Current occupation: [employer] Current occupational exposures/hazards: No Sexual orientation: Straight/Heterosexual Gender identity: Female Cognitive needs: No Hearing needs: No Vision needs: No Questionnaire PHQ-9 Over the last 2 weeks, how often have you been bothered by any of the following problems? 1. Little interest or pleasure in doing things: not at all 2. Feeling down, depressed, or hopeless: not at all 3. Trouble falling or staying asleep, or sleeping too much: not at all 4. Feeling tired or having little energy: not at all 5. Poor appetite or overeating: not at all 6. Feeling bad about yourself - or that you are a failure or have let yourself or your family down: not at all 7. Trouble concentrating on things, such as reading the newspaper or watching television: not at all 8. Moving or speaking so slowly that other people could have noticed. Or the opposite - being so fidgety or restless that you have been moving around a lot more than usual: not at all 9. Thoughts that you would be better off or of hurting yourself in some way: not at all Total score: 0 Depression Screening Interpretation: Negative Depression Screening Done: Yes 23039 - PHQ-9 Billing: Yes Source: Developed by Drs. Cecil Montez, Rubi Kenyon, Sha Sultana and colleagues, with an educational gladys from [employer]. Thrive Questionnaire Date Thrive assessed: 02/14/25 I am a: Patient What is your living situation today?: I have a steady place to live Within the past 12 months, did the food you bought not last and you didn't have the money to get more?: Never true Within the past 12 months, did you worry whether your food would run out before you got money to buy more?: Never true Do you have trouble paying for medicines?: No Do you have trouble getting transportation to medical appointments?: No Do you have trouble paying your heating and electricity bill?: No Do you have trouble taking care of your child, family member or friend?: No Do you have trouble with day-to-day activities such as bathing, preparing meals, shopping, managing finances, etc.?: No Are you currently unemployed and looking for a job?: No Are you interested in more education?: No Please select the resources that you would like help with: None Currently or been in a relationship where the following occur: No concerns reported THRIVE Score: 0 AUDIT C Alcohol Use Questionnaire (AUDIT-C) 1. How often do you have a drink containing alcohol?: 2-4 times a month 2. How many drinks containing alcohol do you have on a typical day when you are drinking?: 3 or 4 3. How often do you have six or more drinks on one occasion?: Less than monthly Total Score: 4 Score Reviewed/Action Taken: Yes MIKE-7 AMB Questionnaire MIKE-7 Date MIKE - 7 assessed: 02/14/25 Feeling nervous, anxious, or on edge: 0 = Not at all Not being able to stop or control worryin = Not at all Worrying too much about different things: 0 = Not at all Trouble relaxin = Not at all Being so restless that it is hard to sit still: 0 = Not at all Becoming easily annoyed or irritable: 0 = Not at all Feeling afraid as if something awful might happen: 0 = Not at all Total MIKE-7 score (0-4 normal; 5-9 mild; 10-14 moderate; 15-21 severe): 0 Source: Developed by Drs. Cecil Montez, Rubi Kenyon, Sha Sultana and colleagues, with an educational gladys from [employer]. Physical exam (Primary Care) Vital Signs: Last Vital Signs Temp 98.0 F 02/14/25 07:43 Pulse 76 02/14/25 07:43 BP 138/80 02/14/25 07:43 Pulse Ox 96 02/14/25 07:43 Oxygen Delivery Method Room Air 02/14/25 07:43 BMI result Body Mass Index 36.9 Tobacco/Smoking Status: Tobacco use Status Tobacco use date assessed 02/14/25 02/14/25 07:46 Patient Tobacco Use Status Former Tobacco user 02/14/25 07:42 Tobacco use type Cigarette 02/14/25 07:42 e-Cigarette/Vaping Use Never Used 02/14/25 07:42 PHQ-9: PHQ-9 Score PHQ-9: Total score 0 02/14/25 07:56 Depression Screening Interpretation: Negative Thrive Assessment: Date of Thrive Assessment Date Thrive assessed 02/14/25 02/14/25 07:47 Currently or been in a relationship where the following occur: No concerns reported Coding Level of Care Code Est Pt Level 3 (41653) Est Pt Prev Care 40-64y(30761) Diagnoses Elevated liver enzymes R74.8 Diabetes mellitus E11.9 Encounter for routine adult physical exam with abnormal findings Z. Additional Codes PHQ-9 - 51352 - PHQ-9 Billing: Yes ([id number]) Assessment & Plan Assessment & Plan (1) Elevated liver enzymes: Code(s): R74.8 - Abnormal levels of other serum enzymes Category: Medical (2) Diabetes mellitus: Comment: type 2-dx ~ age 45-glucose usually [id number] Jardiance, Metformin, Trulicity Code(s): E11.9 - Type 2 diabetes mellitus without complications Category: Medical (3) Encounter for routine adult physical exam with abnormal findings: Code(s): Z00.01 - Encounter for general adult medical examination with abnormal findings Category: Medical Plan . Orders: Orders US abdomen complete Today R74.8 - Abnormal levels of other serum enzymes Medications: Changed From semaglutide (Ozempic) 1 mg (0.75 mL) subcut QWEEK 3 mL 5RF To semaglutide 2 mg (0.75 mL) subcut QWEEK 3 mL 5RF
[2025-02-14 07:43] VITALS: BP 138/80; PULSE 76; RESP 15; TEMP 36.7; O2SAT 96; BMI 36.9
== END 2025-02-14 08:16 | disposition home or self-care (01) ==
LOC: HO.HMCC 07:27
PROVIDERS: PCP Nurse Practitioner Family; Visit Provider Nurse Practitioner Family
DX: Z00.01 Encounter for general adult medical examination with abnormal findings (principal); R74.8 Abnormal levels of other serum enzymes; E11.9 Type 2 diabetes mellitus without complications; Z23 Encounter for immunization

== ENCOUNTER → 2025-02-14 07:27 | Outpatient (BNVA) | payer BC, SELFPAY | PROVIDERS: PCP Nurse Practitioner Family; Visit Provider Nurse Practitioner Family | DX: Z00.01 Encounter for general adult medical examination with abnormal findings (principal); Z23 Encounter for immunization; R74.8 Abnormal levels of other serum enzymes; E11.9 Type 2 diabetes mellitus without complications | CPT/HCPCS: 83036; 90471; 90715; 96127 ==

== ENCOUNTER 2025-06-16 10:07 | Outpatient (AMB) | payer BC, SELFPAY ==
[2025-06-16 10:11] VITALS: BP 124/80; PULSE 75; RESP 16; TEMP 37.2; O2SAT 98; BMI 35.7
--- NOTE | 2025-06-16 10:11 | A.OFFPC_ITS ---
Vital Signs 06/16/25 10:11 Height 5 ft 4 in Weight 208 lb BMI 35.7 BP 124/80 Blood Pressure Location Lt brachial Position Sitting Respiration 16 Pulse 75 Pulse Source Pulse Oximeter Temp 99 F Temp Source Oral Pulse Oximetry (%) 98 Oxygen Delivery Method Room Air Intake Visit Reasons: 4m follow up Cleat Blanker Required: No Accompanied by: Self / Same As Patient Allergies No Known Allergies Allergy (Verified 06/16/25 10:15) Medication List - Last Reconciled 06/16/25 by ROSA Isaac- albuterol sulfate 90 mcg/actuation 1 inh inhalation QID PRN diltiazem HCl CD 360 mg PO DAILY empagliflozin (Jardiance) 25 mg PO DAILY 90 days etanercept 50 mg subcut QWEEK ferrous sulfate 325 mg PO DAILY hydrochlorothiazide 25 mg PO DAILY lisinopril 40 mg PO DAILY metformin 1,000 mg PO BID metoprolol succinate ER 100 mg PO DAILY OneTouch Ultra Test (blood sugar diagnostic) test blood sugar TID NS OneTouch Ultra2 Meter (blood-glucose meter) TID testing NS OneTouch UltraSoft 2 Lancet (lancets) TID testing NS potassium chloride ER 10 mEq PO DAILY semaglutide 2 mg (0.75 mL) subcut QWEEK simvastatin 80 mg PO BEDTIME Tobacco use date assessed: 06/16/25 Dental Screening Dental Screen Date: 06/16/25 Did you have a dental visit in the last 12 months?: Yes Did you have a dental problem in the last 6 months where you did not have access to dental care?: No Was dental information given to patient?: Patient has dentist HPI 4m follow up HPI Details Chief Complaint The patient presents for diabetes management. History of Present Illness The patient is a 60-year-old female presenting with diabetes management. Her hemoglobin A1c is currently 7.0%, reflecting good control of her diabetes. She denies neuropathy, polyuria, polydipsia, chest pain, or dyspnea. The cardiovascular examination noted normal S1 and S2 heart sounds with a systolic murmur, and her lungs were clear bilaterally. Neurological assessment showed positive sensation with monofilament testing bilaterally, and her feet were intact bilaterally. Her eye examination is current, and she plans to have fasting labs soon. Social History Health Maintenance - Eye examination is up-to-date - Scheduled for fasting labs in the near future Review of Systems - Neurological: Denies neuropathy - Genitourinary: Denies polyuria - Endocrine: Denies polydipsia - Cardiovascular: Denies chest pain - Respiratory: Denies dyspnea Physical Exam General: Cooperative, healthy appearing, comfortable, no acute distress and well developed Orientation: Patient oriented x3 Limitations: No limitations Head: Normal to inspection Ears: Hearing grossly normal bilaterally Nose: Normal external nose present Face and sinus: Normal facial exam Eyes: Appearance normal, both eyes and all related structures Neck: Normal visual inspection and Yes full ROM Respiratory: Normal respiratory effort and able to speak in complete sentences. Clear to auscultation bilaterally Cardiovascular: Regular rate and rhythm. Normal S1 and S2 with faint systolic murmur GI: Normal to inspection. Soft to palpation and nontender Skin: No rashes or lesions noted Neuro: Patient oriented x3 Extremities: Normal to inspection. Feet intact bilaterally with positive sensation using monofilament Results - Labs: Hemoglobin A1c is 7.0% Plan 1. Diabetes Mellitus The patient's diabetes is well-controlled with a hemoglobin A1c of 7.0%. She reports no complications such as neuropathy, polyuria, or polydipsia. The plan is to continue current management and perform fasting labs for ongoing assessment. Discussion Notes I discussed with the patient that her diabetes management is effective, as evidenced by her A1c of 7.0%. We reviewed the importance of maintaining her current regimen and the need for upcoming fasting labs to monitor her condition. Patient Instructions - Continue current diabetes management r egimen. - Schedule and complete fasting labs as planned. [facility]LY [facility], [facility] Medical History Anemia Heartburn Murmur Asthma Kidney cysts On beta bill at home Lipid disorder Rheumatoid arthritis Hypertension, essential Diabetes mellitus Surgical History Hx of right cataract extraction Hx of cholecystectomy History of back surgery Family History Father Heart disease Myocardial infarction Mother History of CVA (cerebrovascular accident) Brother No problems noted. Sister No problems noted. Daughter No problems noted. Daughter No problems noted. Social History Housing: House Are you a primary healthcare translator to a significant other at home: No Do you presently have visiting nurse or other home services: No Alcohol intake: current Alcohol intake frequency: holidays/special occasions only Patient Tobacco Use Status: Former Tobacco user Tobacco use type: Cigarette Years Smoked: 20 e-Cigarette/Vaping Use: Never Used Second Hand Smoke Exposure: No Current occupational status: employed Current occupation: [employer] Current occupational exposures/hazards: No Sexual orientation: Straight/Heterosexual Gender identity: Female Cognitive needs: No Hearing needs: No Vision needs: No Questionnaire PHQ-9 Over the last 2 weeks, how often have you been bothered by any of the following problems? 1. Little interest or pleasure in doing things: not at all 2. Feeling down, depressed, or hopeless: not at all 3. Trouble falling or staying asleep, or sleeping too much: not at all 4. Feeling tired or having little energy: not at all 5. Poor appetite or overeating: not at all 6. Feeling bad about yourself - or that you are a failure or have let yourself or your family down: not at all 7. Trouble concentrating on things, such as reading the newspaper or watching television: not at all 8. Moving or speaking so slowly that other people could have noticed. Or the opposite - being so fidgety or restless that you have been moving around a lot more than usual: not at all 9. Thoughts that you would be better off or of hurting yourself in some way: not at all Total score: 0 Depression Screening Interpretation: Negative Depression Screening Done: Yes 59969 - PHQ-9 Billing: Yes Source: Developed by Drs. Cecil Montez, Rubi Kenyon, Sha Sultana and colleagues, with an educational gladys from [employer]. Thrive Questionnaire Date Thrive assessed: 02/14/25 I am a: Patient What is your living situation today?: I have a steady place to live Within the past 12 months, did the food you bought not last and you didn't have the money to get more?: Never true Within the past 12 months, did you worry whether your food would run out before you got money to buy more?: Never true Do you have trouble paying for medicines?: No Do you have trouble getting transportation to medical appointments?: No Do you have trouble paying your heating and electricity bill?: No Do you have trouble taking care of your child, family member or friend?: No Do you have trouble with day-to-day activities such as bathing, preparing meals, shopping, managing finances, etc.?: No Are you currently unemployed and looking for a job?: No Are you interested in more education?: No Please select the resources that you would like help with: None Currently or been in a relationship where the following occur: No concerns reported THRIVE Score: 0 MIKE-7 AMB Questionnaire MIKE-7 Date MIKE - 7 assessed: 02/14/25 Feeling nervous, anxious, or on edge: 0 = Not at all Not being able to stop or control worryin = Not at all Worrying too much about different things: 0 = Not at all Trouble relaxin = Not at all Being so restless that it is hard to sit still: 0 = Not at all Becoming easily annoyed or irritable: 0 = Not at all Feeling afraid as if something awful might happen: 0 = Not at all Total MIKE-7 score (0-4 normal; 5-9 mild; 10-14 moderate; 15-21 severe): 0 Source: Developed by Drs. Cecil Montez, Rubi Kenyon, Sha Sultana and colleagues, with an educational gladys from [employer]. Physical exam (Primary Care) Vital Signs: Last Vital Signs Temp 99 F 06/16/25 10:11 Pulse 75 06/16/25 10:11 Resp 16 06/16/25 10:11 BP 124/80 06/16/25 10:11 Pulse Ox 98 06/16/25 10:11 Oxygen Delivery Method Room Air 06/16/25 10:11 BMI result Body Mass Index 35.7 Tobacco/Smoking Status: Tobacco use Status Tobacco use date assessed 06/16/25 06/16/25 10:22 Patient Tobacco Use Status Former Tobacco user 06/16/25 10:22 Tobacco use type Cigarette 06/16/25 10:22 e-Cigarette/Vaping Use Never Used 06/16/25 10:22 PHQ-9: PHQ-9 Score PHQ-9: Total score 0 06/16/25 10:22 Depression Screening Interpretation: Negative Thrive Assessment: Date of Thrive Assessment Date Thrive assessed 02/14/25 06/16/25 10:22 Currently or been in a relationship where the following occur: No concerns reported Coding Level of Care Code Est Pt Level 3 (63442) Diagnoses Diabetes mellitus E11.9 Additional Codes PHQ-9 - 05805 - PHQ-9 Billing: Yes ([id number]) Assessment & Plan Assessment & Plan (1) Diabetes mellitus: Code(s): E11.9 - Type 2 diabetes mellitus without complications Category: Medical Plan . Orders: Orders Comprehensive [place]. Panel Fast Today E11.9 - Type 2 diabetes mellitus without complications Complete Blood Count Auto Diff Today E11.9 - Type 2 diabetes mellitus without complications TSH reflex Free T4 Today E11.9 - Type 2 diabetes mellitus without complications UA CC w/rflx Micro + Cult Today E11.9 - Type 2 diabetes mellitus without complications Lipid Panel Today E11.9 - Type 2 diabetes mellitus without complications Vitamin D 25-OH Total Today E11.9 - Type 2 diabetes mellitus without complications
--- OUTSIDE RECORDS SUMMARY | 2025-06-16 12:21 | XMS_ITS | Clinical Summary ---
Author Organization [facility] Address [address] [place], [place] [address] Phone Care Team Providers Care Assessment Coordinator Name Role Phone Justin Becker [employer]ER Primary Care Provider + Carey Bailey [employer] Unavailable [phone] Medications metFORMIN (GLUCOPHAGE) 1000 MG tablet TAKE ONE TABLET BY MOUTH TWICE A DAY 180 tablet 2 09/03/2018 Active simvastatin (ZOCOR) 20 MG tablet TAKE 1 TABLET BY MOUTH EVERY EVENING. 90 tablet 3 09/07/2018 Active simvastatin (ZOCOR) 20 MG tablet TAKE 1 TABLET BY MOUTH EVERY EVENING. 90 tablet 3 09/09/2018 Active simvastatin (ZOCOR) 20 MG tablet TAKE 1 TABLET BY MOUTH EVERY EVENING. 90 tablet 3 09/10/2018 Active Family History Medical History Relation Comments CV disease Father 2 Hypertension Mother 2 Stroke Mother 2 Relation Status Comments Father 1 Father 2 Mother 1 Mother 2 Social History Tobacco Use Types Packs/Day Years Used Date Smoking Tobacco: Never Assessed Education Answer Date Recorded Are you interested in more education? Not on marcelle e 01/31/2023 Are you concerned about learning? Not on file 01/31/2023 No 01/31/2023 No 01/31/2023 Digital Access Answer Date Recorded No 03/01/2023 No 03/01/2023 Reliable internet access at home? Not on file 03/01/2023 Device with a working camera? Not on file Comments Unknown Sex and Gender Information Value Date Recorded Sex Assigned at Not on file Legal Sex Female 9:41 PM EDT Gender Identity Not on file Sexual Orientation Not on file Last Filed Vital Signs Vital Sign Reading Time Taken Comments Blood Pressure 170/90 05/02/2015 2:52 AM EDT Pulse 80 05/02/2015 2:52 AM EDT Temperature 37.1 C (98.8 F) 05/02/2015 2:52 AM EDT Respiratory Rate - - Oxygen Saturation - - Inhaled Oxygen Concentration - - Weight 102.3 kg (225 lb 9.6 oz) 05/02/2015 2:52 AM EDT Height 165.1 cm (5' 5 ) 05/02/2015 2:52 AM EDT Body Mass Index 37.54 05/02/2015 2:52 AM EDT Plan of Treatment Health Maintenance Due Date Last Done Comments Adult Td,Tdap Booster 1965 CREATININE LEVEL 1965 LIPID PANEL 1965 DEPRESSION SCREENING 1977 SMOKING Hx and SMOKELESS TOBACCO SCREENING 1978 HEPATITIS C SCREENING 1983 HIV ONE-TIME SCREENING (18-65 YEARS) 1983 PAP SMEAR 1986 MAMMOGRAM 2005 COLOGUARD 2010 COLONOSCOPY 2010 COLORECTAL CANCER SCREENING 2010 FIT TEST 2010 FOBT 2010 SIGMOIDOSCOPY 2010 VIRTUAL COLONOSCOPY 2010 ZOSTER VACCINES (1 of 2) 2015 PNEUMOCOCCAL VACCINES (50+ years) (2 of 2 - PCV) 02/05/2018 02/05/2017 INFLUENZA VACCINE (#1) 2025 , 07/17/2018, 05/22/2017, Additional history exists COVID-19 VACCINE (3 - 2024- season) 2025 12/08/2020, 11/16/2020 RSV VACCINE (1 - 1-dose 75+ series) 2040 HEPATITIS A VACCINES Aged Out No long er eligible based on patient's age to complete this topic HIB VACCINES Aged Out No longer eligi ble based on patient's age to complete this topic MENINGOCOCCAL VACCINES (ACWY) Aged Out No longer eligible based on patient's age to complete this topic MENINGOCOCCAL VACCINES (B) Aged Out N o longer eligible based on patient's age to complete this topic Medical Devices Not on file Insurance [employer] [place] [address] [place] [address] [place] [address] [place] [address] [place] [address] [place] [address] HMO POS HMO [place] [address] [place] [address] HMO POS [facility] HMO POS Care Teams Assessment Coordinator Relationship Specialty Start Date End Date Justin Becker NP [address] [place] [id number] PCP - General 07/21/17 Carey Bailey NP [address] [place] Historical LMR Provider 07/23/17 Additional Source Comments The information contained in this document represents components of the legal health record. It is not the complete legal health record.[facility]
== END 2025-06-16 10:44 | disposition home or self-care (01) ==
LOC: HO.HMCC 10:08
PROVIDERS: PCP Nurse Practitioner Family; Visit Provider Nurse Practitioner Family
DX: E11.9 Type 2 diabetes mellitus without complications (principal); Z13.9 Encounter for screening, unspecified

== ENCOUNTER → 2025-06-16 10:07 | Outpatient (BNVA) | payer BC, SELFPAY | PROVIDERS: PCP Nurse Practitioner Family; Visit Provider Nurse Practitioner Family | DX: E11.9 Type 2 diabetes mellitus without complications (principal); Z13.31 Encounter for screening for depression | CPT/HCPCS: 83036; 96127 ==

== ENCOUNTER 2025-10-04 12:25 | Outpatient (AMB) | payer BC, SELFPAY ==
[2025-10-04 12:39] VITALS: BP 128/70; PULSE 78; TEMP 36.6; O2SAT 98; BMI 35.2
--- NOTE | 2025-10-04 12:39 | AM.OFFWIN_ITS ---
Intake Vital Signs 10/04/25 12:39 Height 5 ft 4 in Weight 205 lb BMI 35.2 BP 128/70 Blood Pressure Location Rt brachial Position Sitting Pulse 78 Pulse Source Pulse Oximeter Temp 97.9 F Temp Source Oral Pulse Oximetry (%) 98 Oxygen Delivery Method Room Air Intake Visit Reasons: EP Possible shingles Intake Note: Patient presents c/o left thigh sensitive to touch, red slightly raised bumps on left thigh & left lower back, fatigue, burning/stabbing pain x4-5 days. Patient Tobacco Use Status: Former Tobacco user Allergies No Known Allergies Allergy (Verified 10/04/25 12:43) HPI HPI Comments History of Present Illness Details She presents to office with L leg sensitivity She woke up with it 4 days ago Pain was sensitive to even the sheet touching her Hx of sciatrica in past and unsure if due to that Noted pain was worsening Yesterday am when she woke up she noticed increased soreness L posterior glute region that wraps around L hip She noticed 2 small bumps to posterior L lower back Pain level is better but she noticed more rash lesions Pt tried some exercises yoga last night to help with discomfort so unsure if that helped this morning No fevers but slight chills No pain to RLE [facility] Medical History Anemia Heartburn Murmur Asthma Kidney cysts On beta bill at home Lipid disorder Rheumatoid arthritis Hypertension, essential Diabetes mellitus Surgical History Hx of right cataract extraction Hx of cholecystectomy History of back surgery Family History Father Heart disease Myocardial infarction Mother History of CVA (cerebrovascular accident) Brother No problems noted. Sister No problems noted. Daughter No problems noted. Daughter No problems noted. Social History Housing: House Are you a primary health care facilities inspector to a significant other at home: No Do you presently have visiting nurse or other home services: No Alcohol intake: current Alcohol intake frequency: holidays/special occasions only Patient Tobacco Use Status: Former Tobacco user Tobacco use type: Cigarette Years Smoked: 20 e-Cigarette/Vaping Use: Never Used Second Hand Smoke Exposure: No Current occupational status: employed Current occupation: [employer] Current occupational exposures/hazards: No Sexual orientation: Straight/Heterosexual Gender identity: Female Cognitive needs: No Hearing needs: No Vision needs: No Review of Systems Const Denies chills and Denies fever(s) ENT Denies dizziness Musc Reports back pain, Denies numbness and Denies tingling Skin/Breast Reports rash and Reports skin pain Neuro Denies dizziness, Denies numbness and Denies tingling Physical Exam Exam Exam: General: Non-toxic, NAD. Speaking full sentences. Skin: Warm dry throughout. Pt has 2 larger erythematous vesicles on erythematous base located to L lumbar region just superior to sciatic nerve. Scattered erythematous vesicles are noted to L lateral and medial proximal thigh No lesions distal to mid thigh LLE. No lesions to RLE. Lower extremities are equal in size and shape bilaterally Eye: EOMI Respiratory: No respiratory distress or stridor Cardiac: No calf ttp bilaterally. No pitting edema MSK: No midline lumbar or sacral ttp. + full ROM LLE at hip. Neurology: Alert. No aphasia or facial droop. Gait without abnormality Psych: Good mood and affect Vital Signs: Last Vital Signs Temp 97.9 F 10/04/25 12:39 Pulse 78 10/04/25 12:39 BP 128/70 10/04/25 12:39 Pulse Ox 98 10/04/25 12:39 Oxygen Delivery Method Room Air 10/04/25 12:39 BMI result Body Mass Index 35.2 Assessment & Plan Assessment & Plan (1) Shingles: Code(s): B02.9 - Zoster without complications Qualifiers: Herpes zoster complications: without complications Qualified Code(s): B02.9 - Zoster without complications Plan: Patient seen and evaluated. Atypical presentation of shingles but pt has hx of RA and is on immunosuppresant Will prescribe valacyvlorir and muscle relaxant (aware can cause lethargy. No alcohol or driving under influence) Went over s/s such as saddle parathesias or weakness that warrant ER evaluation immediately Patient gave verbal understanding and had no additional questions or concerns at time of discharge All questions answered Medications: New valacyclovir 1,000 mg PO Q8H 21 tabs 0RF 7 days methocarbamol 500 mg PO TID PRN 14 tabs 0RF pain Coding Level of Care Code Est Pt Level 3 (50059) Diagnoses Herpes zoster without complication B02.9 Herpes zoster complications: without complications
== END 2025-10-04 13:48 | disposition home or self-care (01) ==
PROVIDERS: PCP Nurse Practitioner Family; Visit Provider Physician Assistant
DX: B02.9 Zoster without complications (principal)